=== PATIENT | female | born 1945 | race Caucasian/White ===

== ENCOUNTER 2016-11-15 11:53 | Emergency (ER) | payer MEDICARE, OTHER ==
[~2016-11-15] VITALS: Ht 170.2 cm; Wt 90.9 kg
[~2016-11-15 11:53] MED LIST: ASPI-586 PO; CIME200T10 PO; CYCL10TA45 PO; FLUT16SP NS; HYDR-3702 PO; HYDR-3708 PO; KETO10TA55 PO; LEVO125T6 PO; LEVO200T9; LVT.05T; MELO-249 PO; METF500T PO; METO-272 PO; NAPR500T PO; OMEP40CA36 PO; SIMV10TA PO; SIMV20TA PO; TRAM-25 PO
--- OUTSIDE RECORDS SUMMARY | 2016-11-15 11:57 | XMS REPORT | Continuity of Care Document ---
Author Author [facility] Address Unknown Phone Unavailable Care Team Providers Care Video Producer Name Role Phone PARRIS POWELL PCP [phone] Insurance Providers Payer Name Policy Number Subscriber Name Relationship Medicare A And B [id number] Kaitlynn Hawkins 19 Self / Same As Patient Other1 [id number] Kaitlynn Hawkins 19 Self / Same As Patient Advance Directives Directive Response Recorded Date/Time Advanced Directives Yes 08/21/16 8:36pm Type Living Will 08/21/16 8:36pm Chief Complaint and Reason for Visit Chief Complaint Pain Reason for Visit Osteoarthritis of left thumb [id number] Problems Active Problems Medical Problem Onset Date Status Acute thoracic myofascial strain ~07/14/2015 Acute Back pain ~05/19/2016 Acute Contusion ~01/04/2016 Acute Flank pain 04/26/2013 Acute Left lateral knee pain Unknown Acute Mid back pain on left side Unknown Acute Osteoarthritis of left thumb Unknown Acute Medications Current Home Medications Medication Dose Units Route Directions Days/Qty Instructions Start Date Omeprazole 40 Mg 04/26/13 Simvastatin 20 Mg 1 Tab ORAL Daily 04/26/13 Simvastatin 10 Mg 1 Tab ORAL Daily 04/26/13 Metformin Hcl 500 Mg 1 Tab ORAL Twice A Day 04/26/13 Levothyroxine Sodium 125 Mcg 125 Mcg ORAL Daily 45 07/14/15 Metoprolol Succinate 50 Mg 50 Mg ORAL Daily 30 07/14/15 Naproxen 500 Mg 500 Mg ORAL Twice A Day 20 05/19/16 Cyclobenzaprine Hcl 10 Mg 10 Mg ORAL Three Times A Day as needed for Muscle Spasms 30 05/19/16 Aspirin 81 Mg 81 Mg ORAL Daily 05/19/16 Cimetidine 200 Mg 4 Tab ORAL As Needed as needed for Dyspepsia 05/19 Meloxicam 15 Mg 15 Mg ORAL Daily 30 08/21/16 Past Home Medications Medication Directions Ordered Status Levothyroxine Sodium (Synthroid) 50 Mcg Tablet, 04/26/13 Discontinued Levothyroxine Sodium 200 Mcg Tablet, 04/26/13 Discontinued Ketorolac Tromethamine 10 Mg Tablet, 10 Mg Oral Every 6 Hours 04/26/13 Discontinued Hydrocodone Bit/Acetaminophen 1 Each Tablet, 1 Each Oral Every 6 Hours as needed for Pain 03/24/15 Discontinued Fluticasone Propionate 16 Gm Naspr, 16 Gm Nasal Daily 07/14/15 Discontinued Cyclobenzaprine Hcl 10 Mg Tablet, 10 Mg Oral Three Times A Day as needed for Muscle Spasms 07/14/15 Discontinued Acetaminophen/Hydrocodone Bitart 1 Each Tablet, 1-2 Tab Oral Every 6 Hours as needed for Pain 07/14/15 Discontinued Tramadol Hcl 50 Mg Tablet, 1-2 Tab Oral Every 6 Hours as needed for Pain Discontinued Social History Query Response Start Date Stop Date Smoking Status Never smoker Hospital Discharge Instructions No hospital discharge instructions. Plan of Care Discharge Date 08/21/16 9:43pm Disposition 01 HOME OR SELF-CARE Condition at Discharge Stable Instructions/Education Provided Knee Sprain (ED) Prescriptions See Medication Section Referrals PARRIS POWELL - Additional Instructions/Education Use the mobic as needed for pain. Return with worsening or changing pain. Since there is no trauma, it is unlikely that there is a fracture. However, if the pain is worse. Return to the primary care office Monday. Some of your test results may not be complete prior to your leaving the Emergency Department. The Emergency Department is not authorized to give test results over the phone. Please contact the doctor's office listed in this packet of information for your final results. Follow up with your primary care physician or return to the Emergency Department for worsening or worrisome symptoms. * Emergency Department phone number: [phone], x [phone]* MEDICAL RECORD If you need copies of your X-rays, call [phone]. If you need copies of your medical record, including lab results, a signed authorization for release of records will be required. A telephone call for release of Health Information is not allowed. BILLING Billing can sometimes be confusing and frustrating. To help avoid confusion in the future, please take a moment to acquaint yourself with the billing parties for services. SERVICE BILLING [facility] Emergency Room Services [facility] Physician Services [facility] X-rays [facility] Patients will receive bills for services from the appropriate provider. If you have any questions about your [facility] bill, our staff will be happy to assist you. Please call [phone], and ask for the billing department. THANK YOU for choosing [facility] as your emergency care provider! Care Plan and Goals ~~Discharge Care Plan~~ Problem: JOINT pain Goal: Decreased level of pain. Return to usual activities. Instructions: Take medication(s) as directed; follow up with your primary care physician as directed; follow patient home care instructions. Apply ice or heat to site for comfort. Functional Status No functional status results. Allergies, Adverse Reactions, Alerts Allergen Type Severity Reaction Status Last Updated Tramadol Allergy Mild Rash Active 05/19/16 Immunizations Name Given Type Status Date Influenza Vaccine Received if Current 08/22/15 Historical Historical Vital Signs Acute Vital Signs Vital Response Date/Time Temperature (Fahrenheit) 97.8 08/21/2016 9:39pm Pulse 82 bpm 08/21/2016 9:39pm Respirations 16 08/21/2016 9:39pm Height 5 ft 7 in Weight 210 lb Body Mass Index 33.0 kg/m^2 Results No known relevant diagnostic tests, laboratory data and/or discharge summary. Procedures No known history of procedures. Encounters Encounter Location Arrival/Admit Date Discharge/Depart Date Attending Provider Departed Emergency Room [facility] 08/21/16 8:30pm 08/21/16 9:43pm BHUPINDER MARIE MD Recent Diagnosis
[2016-11-15] MEDS ORDERED: SODIUM CHLORIDE FLUSH 10 ML SYR IV PRN ×2 (12:05→13:05)
[2016-11-15] MEDS ORDERED: ONDANSETRON 2 MG/ML (Z0FRAN) 2 ML VIAL IV ONE (12:05)
[2016-11-15] MEDS ORDERED: SODIUM CHLORIDE FLUSH 3 ML SYR IV PRN ×2 (12:05→13:05)
[2016-11-15] MEDS ORDERED: GI COCKTAIL 55 ML UDC PO ONE (13:05)
--- NOTE | 2016-11-15 13:15 | NUR ---
SALINE LOCK START, BY Mandie TURNER RN, IN PATIENT'S LT WRIST.
[2016-11-15 13:21] LABS: BASOPHILS % (AUTO) 0 % (0-2); EOSINOPHILS % (AUTO) 0 % (0-4); LYMPHOCYTES # (AUTO) 1.2 X10^3; MEAN CORPUSCULAR HEMOGLOBIN 28.6 PG (26.0-34.0); MEAN CORPUSCULAR HGB CONC 34.2 g/dL (31.0-37.0); MEAN CORPUSCULAR VOLUME 84 FL (80-100); MEAN PLATELET VOLUME 10.6 FL (6.0-9.5); MONOCYTES # (AUTO) 0.7 X10^3; MONOCYTES % (AUTO) 10 % (3-11); NEUTROPHILS # (AUTO) 5.3 X10^3; NEUTROPHILS % (AUTO) 73 % (51-67); PLATELET COUNT 231 10^3uL (150-450); WHITE BLOOD COUNT 7.16 10^3uL (4.0-11.0)
[2016-11-15] MEDS ORDERED: LIDOCAINE 2% VISCOUS 20ML UDC PO ONE (13:34)
[2016-11-15] MEDS ORDERED: MAG HYDROX/AL HYDROX/SIMETH 400-400-40/5 ML (MAG-AL PLUS XS) 30 ML UDC ONE (13:34)
[2016-11-15] MEDS ORDERED: BELLADONNA/PHENOBARBITAL ELIXIR (DONNATAL) 10 ML UDC ONE (13:34)
[2016-11-15 13:38] LABS: ALBUMIN 4.3 g/dL (3.4-5.0); ANION GAP 17.5 MEQ/L (3-15); CALCULATED IONIZED CALCIUM 3.8 mg/dL (3.8-4.6); TOTAL PROTEIN 7.3 g/dL (6.4-8.5)
[2016-11-15] MEDS ORDERED: ONDANSETRON 2 MG/ML (Z0FRAN) 2 ML VIAL ONE (13:44)
--- NOTE | 2016-11-15 13:52 | NUR ---
IV FLUID INFUSION STOPPED DUE TO PT COMPLAIN OF STINGING PAIN LT WRIST TO LT ELBOW.
--- NOTE | 2016-11-15 13:54 | NUR ---
WARM PACK PROVIDED TO PATIENT TO USE ON LT ARM DESIRED.
--- NOTE | 2016-11-15 13:57 | NUR ---
DR. RODRIGUEZ INFORMED OF PT COMPLAINT OF BURNING SENSATION WITH IVF. SHE INSTRUCTS NO ADDITIONAL IV START ATTEMPTS AT THIS TIME.
--- NOTE | 2016-11-15 14:46 | NUR ---
NOW THINKS SHE CAN PROVIDE URINE SPECIMEN AND IS UP TO TOILET IN ROOM.
--- NOTE | 2016-11-15 14:56 | Diagnostic Imaging Report ---
INDICATION: Pain. COMPARISON: 05/19/2016. FINDINGS: Some prominence of the basilar interstitial lung markings was present on the older exam as a chronic finding; however, the parenchymal density in both lower lobes has progressed and basilar pneumonias could not be excluded. The upper lobes are clear and well expanded. There is no failure pattern. No effusion or pneumothorax. There are clips at the gallbladder fossa. No differential air/fluid levels; however, upper abdominal small bowel loops air-containing are mildly ectatic and early partial obstruction versus enteritis could not be differentiated. The colonic fecal load is not pathologic. There is no free air. IMPRESSION: Mild gas-filled ectasia of the upper abdominal small bowel loops without free air. There is increased basilar interstitial opacity. Dictated by: Dictated on workstation # [id number]
[2016-11-15 15:14] LABS: BILIRUBIN,URINE Negative (Negative); CLARITY,URINE Clear; COLOR,URINE Yellow; GLUCOSE, URINE (UA) Negative (Negative); LEUKOCYTE ESTERASE ,URINE Negative (Negative)
[2016-11-15 15:20] LABS: URINE CENTRIFUGED VOLUME 12 mL
[2016-11-15 15:29] LABS: RBC,URINE None Seen /HPF
--- NOTE | 2016-11-15 15:37 | NUR ---
repositioned in bed and covered her with blanket
--- NOTE | 2016-11-15 15:46 | NUR ---
Patient reports another episode of retching. Says this happens intermittantly and she is never able tobring up anything except some "phlegm".
[2016-11-15] MEDS ORDERED: ONDANSETRON 4 MG (ZOFRAN) ORAL DISSOLVE TAB PO ONE (16:25)
--- NOTE | 2016-11-15 16:27 | NUR ---
pt having a wretching episode at this time. Dr. Jones notified and PO order received.
[2016-11-15] MEDS ORDERED: HYDR-3708 PO (17:19)
[2016-11-15] MEDS ORDERED: ONDA4TAB8 PO (17:20)
[2016-11-15 18:40] VITALS: BP 144/68
[2017-01-03] MEDS ORDERED: DICY20TA10 PO (12:23)
== END 2016-11-15 17:39 | disposition home or self-care (01) ==
LOC: ED 11:55
DX: R10.84 Generalized abdominal pain (principal)
CPT/HCPCS: 36415; 74022; 80053; 81003; 81015; 83690; 85025; 99285; A9270; J7030; 99283

== ENCOUNTER 2017-01-03 09:42 | Emergency (ER) | payer MEDICARE, OTHER ==
[~2017-01-03] VITALS: Ht 170.2 cm; Wt 90.1 kg
[2017-01-03 11:01] LABS: BASOPHILS % (AUTO) 0 % (0-2); EOSINOPHILS % (AUTO) 0 % (0-4); LYMPHOCYTES # (AUTO) 1.2 X10^3; MEAN CORPUSCULAR HEMOGLOBIN 28.7 PG (26.0-34.0); MEAN CORPUSCULAR HGB CONC 34.7 g/dL (31.0-37.0); MEAN CORPUSCULAR VOLUME 83 FL (80-100); MEAN PLATELET VOLUME 10.3 FL (6.0-9.5); MONOCYTES # (AUTO) 0.8 X10^3; MONOCYTES % (AUTO) 11 % (3-11); NEUTROPHILS # (AUTO) 5.5 X10^3; NEUTROPHILS % (AUTO) 72 % (51-67); PLATELET COUNT 276 10^3uL (150-450); WHITE BLOOD COUNT 7.57 10^3uL (4.0-11.0)
[2017-01-03 11:08] LABS: BILIRUBIN,URINE Negative (Negative); CLARITY,URINE Clear; COLOR,URINE Yellow; GLUCOSE, URINE (UA) Negative (Negative); LEUKOCYTE ESTERASE ,URINE Negative (Negative); PH,URINE 5.5 (5.0 - 8.0); UROBILINOGEN,URINE 0.2 mg/dL (0.2-1.0)
[2017-01-03 11:32] LABS: ALBUMIN 4.2 g/dL (3.4-5.0); ANION GAP 15.9 MEQ/L (3-15); CALCULATED IONIZED CALCIUM 3.8 mg/dL (3.8-4.6); TOTAL PROTEIN 7.8 g/dL (6.4-8.5)
[2017-01-03 16:07] VITALS: BP 127/52
== END 2017-01-03 12:32 | disposition home or self-care (01) ==
LOC: ED 09:43
DX: R10.84 Generalized abdominal pain (principal)
CPT/HCPCS: 36415; 76700; 80053; 81003; 83690; 85025; 99282; 99283

== ENCOUNTER → 2017-01-19 | Outpatient (CLI) | payer MEDICARE, OTHER | LOC: RAD 10:34 | PROVIDERS: ATTEND Surgery | DX: R91.8 Other nonspecific abnormal finding of lung field (principal); R91.1 Solitary pulmonary nodule | CPT/HCPCS: 71260; Q9967 ==

== ENCOUNTER 2017-01-20 06:44 | Day surgery (SDC) | payer MEDICARE, OTHER ==
[~2017-01-20] VITALS: Ht 170.2 cm; Wt 85.0 kg
[~2017-01-20 06:44] MED LIST changes: -ASPI-586 PO; -CIME200T10 PO; -CYCL10TA45 PO; -FLUT16SP NS; -HYDR-3702 PO; -HYDR-3708 PO; -KETO10TA55 PO; +LACTATED RINGERS 1,000 ML IV SCH; -LEVO125T6 PO; -LEVO200T9; -LVT.05T; -MELO-249 PO; -METF500T PO; -METO-272 PO; -NAPR500T PO; -OMEP40CA36 PO; -SIMV10TA PO; -SIMV20TA PO; +SODIUM CHLORIDE FLUSH 3 ML SYR IV PRN; -TRAM-25 PO
[2017-01-20 07:05] VITALS: BP 124/76
[2017-01-20] MEDS ORDERED: ALFENTANIL 500 MCG/ML (ALFENTA) 5 ML AMP IV ONE (08:06)
[2017-01-20] MEDS ORDERED: MIDAZOLAM 2 MG/2 ML (VERSED) VIAL ONE (08:06)
[2017-01-20] MEDS ORDERED: PROPOFOL 20 ML IV ONE (08:06)
[2017-01-20 08:52] VITALS: BP 112/63
[2017-01-20 09:15] VITALS: BP 138/74
== END 2017-01-20 09:49 | disposition home or self-care (01) ==
LOC: ASC 06:44
PROVIDERS: ATTEND Surgery
PROC: 0DBH8ZX Excision of Cecum, Via Natural or Artificial Opening Endoscopic, Diagnostic (ICD-10-PCS; principal; 2017-01-20)
DX: C83.39 Diffuse large B-cell lymphoma, extranodal and solid organ sites (principal); D12.2 Benign neoplasm of ascending colon; I10 Essential (primary) hypertension; E11.9 Type 2 diabetes mellitus without complications; Z79.84 Long term (current) use of oral hypoglycemic drugs; E07.9 Disorder of thyroid, unspecified; Z80.9 Family history of malignant neoplasm, unspecified
CPT/HCPCS: 36415; 45380; 82565; 88305; 88341; 88342; 88360; J2250; J7120

== ENCOUNTER → 2017-02-07 | Outpatient (CLI) | payer MEDICARE, OTHER ==
[~2017-02-07] MED LIST changes: +ASPI-586 PO; +CIME200T10 PO; +CYCL10TA45 PO; +DICY20TA10 PO; +FLUT16SP NS; +HYDR-3702 PO; +HYDR-3708 PO; +KETO10TA55 PO; -LACTATED RINGERS 1,000 ML IV SCH; +LEVO125T6 PO; +LEVO200T9; +LVT.05T; +MELO-249 PO; +METF500T PO; +METO-272 PO; +NAPR500T PO; +OMEP40CA36 PO; +ONDA4TAB8 PO; +SIMV10TA PO; +SIMV20TA PO; -SODIUM CHLORIDE FLUSH 3 ML SYR IV PRN; +TRAM-25 PO
[2017-02-07 11:03] LABS: MEAN CORPUSCULAR VOLUME 81 FL (80-100); MEAN PLATELET VOLUME 10.4 FL (6.0-9.5); PLATELET COUNT 289 10^3uL (150-450); WHITE BLOOD COUNT 5.87 10^3uL (4.0-11.0)
[2017-02-07 11:13] LABS: ALBUMIN 4.2 g/dL (3.4-5.0); ANION GAP 16.9 MEQ/L (3-15); CALCULATED IONIZED CALCIUM 3.8 mg/dL (3.8-4.6); PHOSPHORUS 3.9 mg/dL (2.4-4.9); TOTAL PROTEIN 7.8 g/dL (6.4-8.5)
[2017-02-07 11:28] LABS: MEAN CORPUSCULAR HEMOGLOBIN 26.8 PG (26.0-34.0)
[2017-02-07 11:31] LABS: BAND NEUTROPHILS % 0 % (0-6); EOSINOPHILS % 0 % (0-4); LYMPHOCYTES # 1.7 #; MONOCYTES # 0.5 #; MONOCYTES % 9 % (3-11); RBC MORPH NORMAL (NORMAL); SEGMENTED NEUTROPHILS % 61 % (51-67); TOTAL CELLS COUNTED 100
== END ==
LOC: LAB 10:45
PROVIDERS: ATTEND Internal Medicine Hematology & Oncology
DX: C83.38 Diffuse large B-cell lymphoma, lymph nodes of multiple sites (principal)
CPT/HCPCS: 36415; 80053; 80076; 82248; 83615; 83735; 84100; 84550; 85007; 85027

== ENCOUNTER → 2017-02-10 | Outpatient (CLI) | payer MEDICARE, OTHER | LOC: RAD 09:36 | PROVIDERS: ATTEND Internal Medicine Hematology & Oncology | DX: Z03.89 Encounter for observation for other suspected diseases and conditions ruled out (principal) | CPT/HCPCS: 93306 ==

== ENCOUNTER 2017-02-21 11:38 | Outpatient (RCR) | payer MEDICARE, OTHER ==
[2017-02-21 18:51] LABS: HEPATITIS A ANTIBODY IGM Negative; HEPATITIS B CORE ABY IGM Negative; HEPATITIS B SURFACE ANTIGEN C Negative
[2017-03-07] MEDS ORDERED: ONDA4TAB11 PO (16:44)
[2017-03-07] MEDS ORDERED: DICY20TA10 PO (16:44)
[2017-03-08] MEDS ORDERED: LORA0.5T PO (13:19)
[2017-03-08] MEDS ORDERED: HYDR-3708 PO (13:19)
[2017-03-08] MEDS ORDERED: ONDA-51 PO (13:19)
[2017-03-10] MEDS ORDERED: LEVO500T80 PO (14:10)
== END 2017-04-12 19:15 | disposition home or self-care (01) ==
LOC: LAB 11:38
PROVIDERS: ATTEND Internal Medicine Hematology & Oncology
DX: Z09 Encounter for follow-up examination after completed treatment for conditions other than malignant neoplasm (principal); R53.83 Other fatigue
CPT/HCPCS: 36415; 80074

== ENCOUNTER 2017-02-24 07:07 | Day surgery (SDC) | payer MEDICARE, OTHER ==
[~2017-02-24] VITALS: Ht 170.2 cm; Wt 83.0 kg
[~2017-02-24 07:07] MED LIST changes: +LACTATED RINGERS 1,000 ML IV SCH; +SODIUM CHLORIDE FLUSH 10 ML SYR IV PRN; +SODIUM CHLORIDE FLUSH 3 ML SYR IV PRN
[2017-02-24] MEDS ORDERED: ceFAZolin 2,000 MG in SODIUM CHLORIDE 100 ML IV ONE (07:15)
[2017-02-24] MEDS ORDERED: HEPARIN 5000 UNIT/0.5 ML SYRINGE ONE (07:16)
[2017-02-24] MEDS ORDERED: LIDOCAINE/EPINEPHRINE 1% 1:100,000 (XYLOCAINE) 30 ML VIAL INJ ONE (07:16)
[2017-02-24] MEDS ORDERED: PROPOFOL 20 ML IV ONE (08:22)
[2017-02-24] MEDS ORDERED: MIDAZOLAM 2 MG/2 ML (VERSED) VIAL ONE (08:22)
[2017-02-24] MEDS ORDERED: ALFENTANIL 1,000 MCG/2 ML AMP IV ONE (08:22)
[2017-02-24] MEDS ORDERED: ceFAZolin 1000 MG (ANCEF) VIAL ONE (08:30)
[2017-02-24 09:22] VITALS: BP 138/64
[2017-02-24 09:42] VITALS: BP 128/69
--- NOTE | 2017-02-25 14:38 | Diagnostic Imaging Report ---
EXAM: Fluoroscopy. PowerPort insertion FINDINGS: Fluoroscopic assistance was provided for Dr. James Ho during a PowerPort insertion procedure. Four seconds of fluoroscopy time was visualized. A single spot film of the right thorax was received from the OR. There is a central venous catheter in place with the tip of the catheter overlying the distal superior vena cava. IMPRESSION: Fluoroscopic assistance was provided for Dr. Ho during a PowerPort insertion procedure. A followup chest exam would be recommended for continued evaluation. Dictated by: Dictated on workstation # [id number]
--- NOTE | 2017-02-27 11:31 | OPERATIVE REPORT ---
DATE OF OPERATION: 02/24/2017 PRE-OPERATIVE DIAGNOSIS: Colonic lymphoma POST-OPERATIVE DIAGNOSIS: Colonic lymphoma OPERATIVE PROCEDURE: Insertion of left subclavian PowerPort SURGEON: Hardik Ho MD CARGO TANK MECHANIC: SIOMARA Brock ANESTHESIA: Monitored anesthesia care with local INDICATIONS: The patient is a 71-year-old referred by Sae Rizo, found to have a primarily lymphoma involving the colon on endoscopy. Chemotherapy has been recommended as her initial treatment and she presents here for placement of a port for access. DESCRIPTION OF PROCEDURE: The patient was informed of the risks and benefits and agreed to proceed. She was administered IV antibiotics and taken to the operating room. She was then administered IV sedation. Her upper chest and neck were prepped and draped in the standard sterile fashion and she was placed Trendelenburg position. Then 1% lidocaine with epinephrine was injected in the skin of the left deltopectoral groove and along the periosteum of the left clavicle. A Cook needle and syringe was then passed into the subclavian vein and the syringe was removed. The guidewire was passed through the needle into the subclavian vein and superior vena cava. Fluoroscopy was used to confirmed adequate placement of the guidewire with its tip outside the right atrium. The needle was removed and additional lidocaine was injected in the skin around the guidewire entrance site. A transverse incision was made with the #15 blade scalpel measuring about 3 cm in length. Cautery and blunt dissection were then used to create a subcutaneous pocket for placement of the port. Two separate 2-0 Prolene sutures were placed through the pectoralis fascia within the pocket and the port and catheter were then flushed heparinized saline and placed into the pocket. The Prolene sutures were passed through the side holes of the port. The catheter was cut to 22 cm based on the patient's anatomy. The dilator and sheath were then passed over the guidewire and into the subclavian vein. The dilator and guidewire were removed and the catheter was passed through the sheath. The sheath was peeled away. Fluoroscopy confirmed proper placement of the catheter with the tip in the superior vena cava outside the right atrium. There were no kinks in the catheter. The Prolene sutures were tied to secure the port to the pectoralis fascia. The port easily aspirated and was flushed with heparinized saline. The subcutaneous tissue was reapproximated at the incision with interrupted 3-0 Vicryl and the skin was closed with subcuticular 4-0 Monocryl. Dressings were applied. The patient tolerated the procedure without complications.
== END 2017-02-24 09:58 | disposition home or self-care (01) ==
LOC: ASC 07:07
PROVIDERS: ATTEND Surgery
DX: C85.19 Unspecified B-cell lymphoma, extranodal and solid organ sites (principal); J44.9 Chronic obstructive pulmonary disease, unspecified; I10 Essential (primary) hypertension; E11.9 Type 2 diabetes mellitus without complications; Z79.84 Long term (current) use of oral hypoglycemic drugs; Z79.82 Long term (current) use of aspirin
CPT/HCPCS: 36561; 77001; C1788; J0690; J1644; J2250; J7050; J7120

== ENCOUNTER 2017-02-27 09:04 | Day surgery (SDC) | payer MEDICARE, OTHER ==
--- NOTE | 2017-02-24 12:52 | OPERATIVE REPORT ---
DATE OF OPERATION: 02/24/2017 PRE-OPERATIVE DIAGNOSIS: Colonic lymphoma POST-OPERATIVE DIAGNOSIS: Colonic lymphoma OPERATIVE PROCEDURE: Insertion of left subclavian PowerPort SURGEON: Hardik oH MD EDGER TECHNICIAN: SIOMARA Brock ANESTHESIA: Monitored anesthesia care with local INDICATIONS: The patient is a 71-year-old referred by Sae Rizo, found to have a primarily lymphoma involving the colon on endoscopy. Chemotherapy has been recommended as her initial treatment and she presents here for placement of a port for access. DESCRIPTION OF PROCEDURE: The patient was informed of the risks and benefits and agreed to proceed. She was administered IV antibiotics and taken to the operating room. She was then administered IV sedation. Her upper chest and neck were prepped and draped in the standard sterile fashion and she was placed Trendelenburg position. Then 1% lidocaine with epinephrine was injected in the skin of the left deltopectoral groove and along the periosteum of the left clavicle. A Cook needle and syringe was then passed into the subclavian vein and the syringe was removed. The guidewire was passed through the needle into the subclavian vein and superior vena cava. Fluoroscopy was used to confirmed adequate placement of the guidewire with its tip outside the right atrium. The needle was removed and additional lidocaine was injected in the skin around the guidewire entrance site. A transverse incision was made with the #15 blade scalpel measuring about 3 cm in length. Cautery and blunt dissection were then used to create a subcutaneous pocket for placement of the port. Two separate 2-0 Prolene sutures were placed through the pectoralis fascia within the pocket and the port and catheter were then flushed heparinized saline and placed into the pocket. The Prolene sutures were passed through the side holes of the port. The catheter was cut to 22 cm based on the patient's anatomy. The dilator and sheath were then passed over the guidewire and into the subclavian vein. The dilator and guidewire were removed and the catheter was passed through the sheath. The sheath was peeled away. Fluoroscopy confirmed proper placement of the catheter with the tip in the superior vena cava outside the right atrium. There were no kinks in the catheter. The Prolene sutures were tied to secure the port to the pectoralis fascia. The port easily aspirated and was flushed with heparinized saline. The subcutaneous tissue was reapproximated at the incision with interrupted 3-0 Vicryl and the skin was closed with subcuticular 4-0 Monocryl. Dressings were applied. The patient tolerated the procedure without complications.
[~2017-02-27] VITALS: Ht 170.2 cm; Wt 83.6 kg
[2017-02-27] VITALS (7 sets, daily range): BP systolic 116–140; BP diastolic 70–77
[~2017-02-27 09:04] MED LIST changes: -LACTATED RINGERS 1,000 ML IV SCH; -SODIUM CHLORIDE FLUSH 10 ML SYR IV PRN; -SODIUM CHLORIDE FLUSH 3 ML SYR IV PRN
--- NOTE | 2017-02-27 13:45 | Diagnostic Imaging Report ---
INDICATION: Diffuse B-cell lymphoma. COMPARISON: None available. TECHNIQUE: Fluoroscopic-guided lumbar puncture was performed. 0.5 minutes of fluoroscopy time was utilized for this procedure. FINDINGS: Informed consent was obtained from the patient. The patient was then placed in the prone position on the fluoroscopic table. The skin overlying the L3 vertebral body was marked, and then prepped and draped in normal sterile fashion. The skin was anesthetized using 1% lidocaine solution. Under fluoroscopic guidance, a 22-gauge needle was advanced into the thecal sac from a posterior approach at the L3 vertebral level. Upon entering the thecal sac, there was prompt return of clear, colorless CSF fluid. A total of 8 mL of CSF was collected and submitted for requested cytology evaluation. Patient tolerated the procedure well, and was transferred to postoperative area for recovery. No immediate complications. IMPRESSION: 1. Successful lumbar puncture with obtained fluid sent for requested cytology evaluation. Dictated by: Dictated on workstation # [id number]
--- NOTE | 2017-02-27 14:24 | NUR ---
ORDERS VERIFIED WITH DR. Danielito JOSE. OK FOR PATIENT TO LEAVE AFTER LYING FLAT FOR 3 HOURS. PATIENT TO BE BED REST WITH BRP AT HOME.
== END 2017-02-27 15:19 | disposition home or self-care (01) ==
LOC: ASC 09:04
PROVIDERS: ATTEND Internal Medicine Hematology & Oncology
DX: C83.38 Diffuse large B-cell lymphoma, lymph nodes of multiple sites (principal)
CPT/HCPCS: 36415; 62270; 77003; 85610; 85730; 88112; 88184; 88185

== ENCOUNTER → 2017-03-02 | Outpatient (CLI) | payer MEDICARE, OTHER ==
[~2017-03-02] MED LIST changes: +LORA0.5T PO; +ONDA-51 PO; +ONDA4TAB11 PO
--- NOTE | 2017-03-02 10:52 | Diagnostic Imaging Report ---
PROCEDURE: CT head with and without contrast. TECHNIQUE: Multiple contiguous axial images were obtained through the brain before and after the administration of intravenous contrast. INDICATION: History of lymphoma. FINDINGS: The ventricles and cortical gyral pattern are normal. There is no evidence of intracranial hemorrhage. No extra axial fluid collection. There is no mass effect. Basal cisterns are clear. CP angles appear normal. Following IV contrast injection. There is normal enhancement of the intracranial arteries. The sagittal and transverse sinus also show normal enhancement. There are no abnormal enhancing masses. The meninges do not enhance in an abnormal fashion. Bone windows show mastoid air cells to be clear. Paranasal sinuses are clear were visualized. No destructive bony changes. IMPRESSION: Normal CT scan of the head with and without contrast. No findings are seen to suggest metastatic disease. Dictated by: Dictated on workstation # [id number]
== END ==
LOC: RAD 09:01
PROVIDERS: ATTEND Internal Medicine Hematology & Oncology
DX: C83.39 Diffuse large B-cell lymphoma, extranodal and solid organ sites (principal)
CPT/HCPCS: 70470; Q9967

== ENCOUNTER 2017-03-06 08:32 | Outpatient (RCR) | payer MEDICARE, OTHER ==
[~2017-03-06 08:32] MED LIST changes: -LORA0.5T PO; -ONDA-51 PO; -ONDA4TAB11 PO
[2017-03-06 08:47] LABS: MEAN CORPUSCULAR HGB CONC 33.8 g/dL (31.0-37.0); MEAN PLATELET VOLUME 11.7 FL (6.0-9.5); PLATELET COUNT 161 10^3uL (150-450); WHITE BLOOD COUNT 2.04 10^3uL (4.0-11.0)
[2017-03-06 08:50] LABS: MEAN CORPUSCULAR HEMOGLOBIN 26.6 PG (26.0-34.0); MEAN CORPUSCULAR VOLUME 79 FL (80-100)
[2017-03-06 09:12] LABS: BAND NEUTROPHILS % 1 % (0-6); EOSINOPHILS % 0 % (0-4); LYMPHOCYTES # 0.8 #; MONOCYTES # 0.1 #; MONOCYTES % 3 % (3-11); RBC MORPH NORMAL (NORMAL); SEGMENTED NEUTROPHILS % 55 % (51-67); TOTAL CELLS COUNTED 100
[2017-03-07] MEDS ORDERED: DICY20TA10 PO (16:44)
[2017-03-07] MEDS ORDERED: ONDA4TAB11 PO (16:44)
[2017-03-08] MEDS ORDERED: HYDR-3708 PO (13:19)
[2017-03-08] MEDS ORDERED: ONDA-51 PO (13:19)
[2017-03-08] MEDS ORDERED: LORA0.5T PO (13:19)
[2017-03-10] MEDS ORDERED: LEVO500T80 PO (14:10)
[2017-03-13 12:16] LABS: MEAN CORPUSCULAR HGB CONC 32.7 g/dL (31.0-37.0); MEAN CORPUSCULAR VOLUME 81 FL (80-100); MEAN PLATELET VOLUME 10.5 FL (6.0-9.5); PLATELET COUNT 248 10^3uL (150-450); WHITE BLOOD COUNT 4.46 10^3uL (4.0-11.0)
[2017-03-13 12:20] LABS: MEAN CORPUSCULAR HEMOGLOBIN 26.5 PG (26.0-34.0)
[2017-03-13 12:22] LABS: BAND NEUTROPHILS % 0 % (0-6); EOSINOPHILS % 0 % (0-4); LYMPHOCYTES # 1.3 #; MONOCYTES # 0.2 #; MONOCYTES % 4 % (3-11); RBC MORPH NORMAL (NORMAL); SEGMENTED NEUTROPHILS % 67 % (51-67); TOTAL CELLS COUNTED 100
[2017-03-13 12:44] LABS: ALBUMIN 3.9 g/dL (3.4-5.0); ANION GAP 14.1 MEQ/L (3-15); CALCULATED IONIZED CALCIUM 4.1 mg/dL (3.8-4.6); MAGNESIUM* 1.9 mg/dL (1.6-2.3); TOTAL PROTEIN 7.1 g/dL (6.4-8.5)
[2017-03-20 10:35] LABS: MEAN CORPUSCULAR VOLUME 81 FL (80-100); MEAN PLATELET VOLUME 9.9 FL (6.0-9.5); PLATELET COUNT 386 10^3uL (150-450); WHITE BLOOD COUNT 4.27 10^3uL (4.0-11.0)
[2017-03-20 11:10] LABS: MEAN CORPUSCULAR HEMOGLOBIN 26.8 PG (26.0-34.0)
[2017-03-20 11:33] LABS: BAND NEUTROPHILS % 4 % (0-6); EOSINOPHILS % 0 % (0-4); MONOCYTES # 0.3 #; MONOCYTES % 8 % (3-11); RBC MORPH NORMAL (NORMAL); SEGMENTED NEUTROPHILS % 64 % (51-67); TOTAL CELLS COUNTED 100
[2017-04-03 10:52] LABS: MEAN CORPUSCULAR VOLUME 82 FL (80-100); MEAN PLATELET VOLUME 10.5 FL (6.0-9.5); PLATELET COUNT 128 10^3uL (150-450)
[2017-04-03 11:30] LABS: ANISOCYTOSIS MODERATE; BAND NEUTROPHILS % 9 % (0-6); EOSINOPHILS % 0 % (0-4); LYMPHOCYTES # 0.9 #; MONOCYTES # 0.4 #; MONOCYTES % 6 % (3-11); RBC MORPH SEE REFERENCE (NORMAL); SEGMENTED NEUTROPHILS % 70 % (51-67); TOTAL CELLS COUNTED 100
== END 2017-04-12 19:16 | disposition home or self-care (01) ==
LOC: EDSTATUS 08:32 → LAB 08:32
PROVIDERS: ATTEND Internal Medicine Hematology & Oncology
DX: C83.39 Diffuse large B-cell lymphoma, extranodal and solid organ sites (principal)
CPT/HCPCS: 36415; 80053; 83615; 83735; 84100; 85007; 85027

== ENCOUNTER 2017-03-07 16:15 | Inpatient (IN) | payer MEDICARE, OTHER ==
[~2017-03-07] VITALS: Ht 170.2 cm; Wt 84.5 kg
[2017-03-07] MEDS ORDERED: DICY20TA10 PO (16:44)
[2017-03-07] MEDS ORDERED: ONDA4TAB11 PO (16:44)
[2017-03-07 16:55] LABS: MEAN CORPUSCULAR HGB CONC 33.6 g/dL (31.0-37.0); MEAN PLATELET VOLUME 11.6 FL (6.0-9.5); PLATELET COUNT 138 10^3uL (150-450)
[2017-03-07 16:58] LABS: BILIRUBIN,URINE 3+ (Negative); CLARITY,URINE Clear; GLUCOSE, URINE (UA) Trace (Negative); LEUKOCYTE ESTERASE ,URINE Negative (Negative); UROBILINOGEN,URINE >=8.0 mg/dL (0.2-1.0)
[2017-03-07 17:00] LABS: COLOR,URINE Orange
[2017-03-07 17:05] LABS: MEAN CORPUSCULAR HEMOGLOBIN 26.2 PG (26.0-34.0); MEAN CORPUSCULAR VOLUME 78 FL (80-100)
[2017-03-07 17:11] LABS: WHITE BLOOD COUNT 0.17 10^3uL (4.0-11.0)
[2017-03-07 17:12] LABS: URINE CENTRIFUGED VOLUME <10mL Unspun
[2017-03-07 17:13] LABS: RBC,URINE None Seen /HPF
[2017-03-07 17:16] LABS: AMORPHOUS SEDIMENT,UR 1+ /HPF
[2017-03-07 17:19] LABS: ALBUMIN 3.1 g/dL (3.4-5.0); ANION GAP 17.4 MEQ/L (3-15); TOTAL PROTEIN 5.7 g/dL (6.4-8.5)
[2017-03-07 17:27] LABS: BAND NEUTROPHILS % 0 % (0-6); EOSINOPHILS % 0 % (0-4); LYMPHOCYTES # 0.1 #; MONOCYTES % 8 % (3-11); SEGMENTED NEUTROPHILS % 44 % (51-67); TOTAL CELLS COUNTED 100
[2017-03-07 17:28] LABS: MICROCYTOSIS SLIGHT; RBC MORPH SEE REFERENCE (NORMAL)
[2017-03-07] MEDS ORDERED: CEFEPIME 2,000 MG in SODIUM CHLORIDE 100 ML IV ONE (17:55)
--- NOTE | 2017-03-07 18:27 | Diagnostic Imaging Report ---
Clinical indication: Patient with weakness. Exam: Chest x-ray PA and lateral views. Comparisons: CT scan of the chest with IV contrast dated 01/19/2017. Findings: Port-A-Cath seen overlying the left chest with tip in the distal superior vena cava region. Lungs/pleura: There is a roughly 9 mm nodular area in the right lung base which correlates to the nodule seen on comparison chest CT scan. The other described nodules in the lungs are not well-delineated on this exam and better seen on the chest CT scan. Mild atelectasis in the lingular region is again seen. There is no gross interval lung infiltrate. There is no pneumothorax. There is no pleural effusion. Mediastinum: Unremarkable. Pulmonary vasculature: Unremarkable. Heart: Unremarkable. Bones/extrathoracic soft tissue: There are small degenerative spurs involving the thoracic spine. Surgical clips are seen overlying the right upper quadrant which could be related to cholecystectomy changes. Impression: 1: There is no interval lung infiltrate seen. 2: Nodule in the right lung base is seen which is better seen on the comparison chest CT scan. 3: Mild lingular atelectasis versus scarring. Dictated by: Dictated on workstation # [id number]
[2017-03-07] MEDS ORDERED: MAG HYDROX/AL HYDROX/SIMETH 200-200-20/5 ML (MAG-AL PLUS) 30 ML UDC PO PRN (19:30)
[2017-03-07] MEDS ORDERED: ONDANSETRON 4 MG (ZOFRAN) ORAL DISSOLVE TAB PO PRN (19:30)
[2017-03-07] MEDS ORDERED: IBUPROFEN 600 MG (MOTRIN) TAB PO PRN (19:30)
[2017-03-07] MEDS ORDERED: VANCOMYCIN 1,000 MG in SODIUM CHLORIDE 250 ML IV ONE (19:30)
[2017-03-07] MEDS ORDERED: HYDROcodone/APAP 7.5 MG/325 MG (NORCO) TABLET PO PRN (19:30)
[2017-03-07] MEDS ORDERED: PROMETHAZINE HCL INJ 12.5 MG in SODIUM CHLORIDE 25 ML IV PRN (19:30)
[2017-03-07] MEDS ORDERED: ONDANSETRON 2 MG/ML (Z0FRAN) 2 ML VIAL IV PRN (19:30)
[2017-03-07] MEDS ORDERED: POLYETHYLENE GLYCOL 17 GM (MIRALAX) PACKET PO PRN (19:30)
[2017-03-07] MEDS ORDERED: DEXTROSE ORAL GEL (GLUTOSE 40%) 15 GM TUBE PO PRN (19:30)
[2017-03-07] MEDS ORDERED: DEXTROSE 50% 25 GM/50 ML SYRINGE IV PRN (19:30)
[2017-03-07] MEDS ORDERED: VANCOMYCIN PHARMACY PROTOCOL IV SCH ×2 (19:30)
[2017-03-07] MEDS ORDERED: MAGNESIUM HYDROXIDE 80MG/ML (MILK OF MAGNESIA) 30 ML UDC PO PRN (19:30)
[2017-03-07] MEDS ORDERED: DOCUSATE SODIUM 100 MG (COLACE) CAP PO PRN (19:30)
[2017-03-07] MEDS ORDERED: GLUCAGON EMERGENCY 1 MG/KIT IM PRN (19:30)
[2017-03-07] MEDS ORDERED: CALCIUM CARBONATE CHEWABLE 300 MG (TUMS) TABLET PO PRN (19:30)
--- NOTE | 2017-03-07 19:52 | History and Physical (E) ---
History & Physical PCP: Jorge Pool CC: Chills, dry heaves, PRETTY. HPI Kaitlynn Hawkins is a 71 year old female admitted from ED 03/07 where she presented with complaint of chills, dry heaves last night 03/06 and with PRETTY today. Had some diarrhea recently as well. Had chemotherapy about 1 week ago. Mildly tachy in ED but afebrile. BP was quite low initially at 79/50. Quite neutropenic with WBC 0.17, 44% N (ANC = 74.) Hgb 10.7. PLt 138. Chemistry showed AST 90, ALT 191 , AlkP 97, Bili 2.3. Lactic acid 2.7. UA positive for nitrite but negative for LE. Initially no imaging was ordered in the ED. CXR was requested on transfer from ED. Blood culture was drawn in ED. Asked ED physician to start cefepime and she was then admitted for further management. On arrival to unit, awake, interactive, oriented. NAD at present and vitals stable with BP improved to 112/58. She is able to relate history. Boyfriend and another friend are also present to provide history. Had chemo 1 week ago at [facility]. Got 6 different medications. Tolerated that well though she had headaches. Started feeling crummy last night with PRETTY earlier, then some soft stools followed by diarrhea. PRETTY got worse. Went to bed at 2100, had chills. Didn't check temp. [place] so weak she didn't get out of bed. Friends called in AM but she didn't even have strength to answer phone. Friends finally came to check on her, found her to be ill and they brought her to ED. With this illness, no objective fever but had chills. Had dry heaves. Some cough but this is chronic. No dyspnea. No chest pains or palpitations. PRETTY has been persistent. PMH * Non-Hodgkin's Lymphoma, stage IV, diagnosis November 2016 * GERD * HLD * Diabetes Mellitus Type II * Hypothyroidism * Sarcoidosis * HTN * Arthritis * Back pain PSH * Cholecystectomy * Thyroidectomy * Colonoscopy * Lung biopsy * Medi-port ALLERGIES: Please see list at end of report. HOME MEDICATIONS: Please see list at end of report. FH Mom of CHF and renal failure. Father of gastrointestinal cancer, type unknown. SH Lives in her own home [place]. Leave of absence from [employer]. . Has a boyfriend. Non-smoker. Drinks alcohol occasionally. No drug use. ROS CONSTITUTION: Denies weight loss or gain. HEENT: PRETTY. No sores in mouth or sore throat. CV: No chest pain, palpitations. PULM: Chronic cough, no dyspnea. GI: Per HPI, exam. : No dysuria. No blood in urine. MS: Achy all over. NEURO: No numbness or tingling. No weakness. INTEG: No rashes, lesions, or sores. ENDO: No heat or cold intolerance. No polydipsia or polyuria. HEME/LYMPH: No easy bruising or bleeding. No swollen glands. PSYCH: No change in mood or behavior. OBJECTIVE Vital Signs Date Time Temp Pulse Resp B/P Pulse Ox O2 Delivery O2 Flow Rate FiO2 03/07/17 17:30 90 112/58 100 Room Air 03/07/17 16:34 96.9 18 GEN: Awake, alert, oriented, NAD at present. HEENT: EOMI, clear sclerae, somewhat dry oral mucosa. CV: RRR S1 S2 normal with no murmur LUNGS: CTA B with no R/R/W. ABD: Soft, NT/ND with normal bowel sounds. EXTR: No C/C/E. Normal peripheral pulses. INTEG: No rash. Warm, dry, well-perfused. NEURO: No focal motor neuro deficit. Mild psychomotor slowing. Weight: 81.8 kg Laboratory Results-14 Days 03/07/17 16:32: Urine Amorphous Sediment 1+H, Urine Bacteria 2+H, Urine Bilirubin 3+H, Urine Blood Trace-lysedH, Urine Clarity Clear, Urine Collection Type Clean catch, Urine Color [place], Urine Glucose (UA) TraceH, Urine Ketones TraceH, Urine Leukocyte Esterase Negative, Urine Microscopic RBC None seen, Urine Mucus 3+H, Urine Nitrite PositiveH, Urine Protein 2+H, Urine Specific [place] 1.020, Urine Squamous Epithelial Cells 5-10, Urine Urobilinogen >=8.0H, Urine WBC 10-20H, Urine pH 6.0, Volume Urine Centrifuged <10ml unspun 03/07/17 16:45: Absolute Band Neutrophils 0.0, Alanine Aminotransferase (ALT/SGPT) 191H, Albumin 3.1#L, Albumin/Globulin Ratio 1.192, Alkaline Phosphatase 97, Anion Gap 17.4H, Anisocytosis , Aspartate Amino Transf (AST/SGOT) 90H, BUN/Creatinine Ratio 25H, Band Neutrophils % 0, Basophils # (Auto) , Basophils # (Manual) 0.0, Basophils % (Manual) 0, Basophils (%) (Auto) , Blood Morphology Comment See reference, Blood Urea Nitrogen 22#H, Calcium Level 8.1L, Calcium/Ionized Calcium Ratio 4.0, Calculated Osmolality 267L, Carbon Dioxide Level 28, Chloride Level 93L, Creatinine 0.88, Differential Total Cells Counted 100, Eosinophils # 0.0, Eosinophils # (Auto) , Eosinophils % (Manual) 0, Eosinophils (%) (Auto) , Estimat Glomerular Filtration Rate 76.9, Estimated GFR (Non- 63.5, Glucose Level 151H, Hematocrit 31.80L, Hemoglobin 10.7L, Lactic Acid Level 2.7H, Lymphocytes # 0.1, Lymphocytes # (Auto) , Lymphocytes % (Manual) 48H, Lymphocytes (%) (Auto) , Mean Corpuscular Hemoglobin 26.2, Mean Corpuscular Hemoglobin Concent 33.6, Mean Corpuscular Volume 78L, Mean Platelet Volume 11.6H, Microcytosis Slight, Monocytes # 0.0, Monocytes # (Auto) , Monocytes % (Manual) 8, Monocytes (%) (Auto) , Neutrophils # 0.1, Neutrophils # (Auto) , Neutrophils (%) (Auto) , Platelet Count 138L, Potassium Level 4.1, Red Blood Count 4.09, Red Cell Distribution Width 13.7, Segmented Neutrophils % 44L , Sodium Level 135, Total Bilirubin 2.3#H, Total Protein 5.7L, White Blood Count 0.17*L MICRO 03/07 Blood culture PENDING 03/07 Urine culture PENDING IMAGING 03/07/17 CHEST PA/LAT (2 VIEW)* Clinical indication: Patient with weakness. Exam : Chest x-ray PA and lateral views. Comparisons: CT scan of the chest with IV contrast dated 01/19/2017. Findings: Port-A-Cath seen overlying the left chest with tip in the distal superior vena cava region. Lungs/pleura: There is a roughly 9 mm nodular area in the right lung base which correlates to the nodule seen on comparison chest CT scan. The other described nodules in the lungs are not well-delineated on this exam and better seen on the chest CT scan. Mild atelectasis in the lingular region is again seen. There is no gross interval lung infiltrate. There is no pneumothorax. There is no pleural effusion. Mediastinum: Unremarkable. Pulmonary vasculature: Unremarkable. Heart: Unremarkable. Bones/extrathoracic soft tissue: There are small degenerative spurs involving the thoracic spine. Surgical clips are seen overlying the right upper quadrant which could be related to cholecystectomy changes. Impression: 1: There is no interval lung infiltrate seen. 2: Nodule in the right lung base is seen which is better seen on the comparison chest CT scan. 3 : Mild lingular atelectasis versus scarring. REFERENCE 03/02/17 CT HEAD W WO PROCEDURE: CT head with and without contrast. TECHNIQUE: Multiple contiguous axial images were obtained through the brain before and after the administration of intravenous contrast. INDICATION: History of lymphoma. FINDINGS: The ventricles and cortical gyral pattern are normal. There is no evidence of intracranial hemorrhage. No extra axial fluid collection. There is no mass effect. Basal cisterns are clear. CP angles appear normal. Following IV contrast injection. There is normal enhancement of the intracranial arteries. The sagittal and transverse sinus also show normal enhancement. There are no abnormal enhancing masses. The meninges do not enhance in an abnormal fashion. Bone windows show mastoid air cells to be clear. Paranasal sinuses are clear were visualized. No destructive bony changes. IMPRESSION: Normal CT scan of the head with and without contrast. No findings are seen to suggest metastatic disease. 01/19/17 CT CHEST W PROCEDURE: CT chest with contrast only. TECHNIQUE: Multiple contiguous axial images were obtained through the chest after administration of intravenous contrast. INDICATION: Pulmonary nodules, history of sarcoidosis. COMPARISON: Comparison limited to relevant overlapped images from a CT thoracic spine dated 04/26/2013 and with overlapped images of an abdominopelvic CT performed 04/26/2013. FINDINGS: There is no peritracheal or mediastinal lymphadenopathy. There is no hilar adenopathy. No bronchiectasis. No suspicious interstitial lung disease, no evidence for acute pneumonia. There is a right lower lobe nodule measuring 8.6 mm unchanged from the abdominal CT of 2013. Micronodule 3-4 mm in the left lower lobe also unchanged from 2013 chronic and benign. A right lower lobe nodule posteromedially near the posterior sulcus today measures 1 cm unchanged as well. No new dominant or suspicious lung mass. No thoracic adenopathy. No effusion or pneumothorax. Visualized upper abdomen unremarkable. IMPRESSION: Bilateral pulmonary nodules unchanged from a study performed in April 2013. This degree of stability is adequate to confirm benignity. No lymphadenopathy, no pneumonia, and no evidence for substantial chronic interstitial disease. ASSESSMENT Kaitlynn Hawkins is a 71 year old female admitted from ED 03/07 where she presented with SIRS/sepsis attributed to UTI. She had profound hypotension on admit consistent with severe sepsis but BP rapidly improved with IVF given in ED. She had profound neutropenia on admit with WBC 0.17 and ANC 45. She has underlying NHL. PLAN * SIRS, Severe Sepsis: Attribute to UTI but in the setting of severe neutropenia. Cultures pending. Broad spectrum antibiotics. * UTI: Urine culture pending. Broad spectrum coverage with cefepime and vanco because of neutropenia. * Neutropenic Fever: Fever subjective. ANC on admit 75. Already got G-CSF. Monitor counts. Cefepime, vanco. * NHL, Stage IV: Obtain records from [facility]. * Hypotension: BP low on initial presentation, 79/50. Responsive to IVF. 1 L NS bolus given in ED. 2 additional liters ordered on admit. * PRETTY: Ibuprofen, norco. * Nausea/Vomiting: Minimal on admit but had symptoms prior to admit. Ondansetron , promethazine. * F/E/N: IVF as above. Diabetic diet. Port. I&O, daily weight. * Prophylaxis: Enoxaparin * Code Status: DNR. Discussed on admit. * Dispo: Inpatient, expecting 3 day stay minimum. CHRONIC ISSUES * Diabetes Mellitus Type II: Sliding scale. Hold metformin. * Hypothyroidism: Levothyroxine * HTN: Hold metoprolol. * HLD: Simvastatin * GERD: Pantoprazole (sub for omeprazole. Allergies/Home Medications Allergies: Coded Allergies: tramadol (Verified Allergy, Mild, Itching, rash, 03/07/17) Reported Home Medications Scheduled Aspirin (Aspir 81) 81 MG PO DAILY (Reported) Dicyclomine HCl (Dicyclomine HCl) 20 MG PO UD (Reported) Levothyroxine Sodium (Levothyroxine Sodium) 1.5 TAB PO DAILY (Reported) Metformin HCl (Glucophage) 1 TAB PO BID (Reported) Metoprolol Succinate (Metoprolol Succinate) 50 MG PO DAILY (Reported) Omeprazole (Omeprazole) 40 MG PO DAILY (Reported) Ondansetron (Ondansetron ODT) 4 MG PO UD (Reported) Simvastatin (Zocor) 1 TAB PO DAILY (Reported) Simvastatin (Zocor) 1 TAB PO DAILY (Reported) Copies to: End of Report . MONI DOVER MD Mar 07, 2017 18:02
[2017-03-07] MEDS ORDERED: SODIUM CHLORIDE 250 ML ONE (19:53)
[2017-03-07] MEDS ORDERED: VANCOMYCIN 1000 MG VIAL ONE (19:53)
[2017-03-07 20:00] VITALS: BP 100/50
[2017-03-07] MEDS: INSULIN LISPRO 1 UNIT/0.01 ML (HUMALOG) DOSE SC SCH (20:20)
[2017-03-07] MEDS: CEFEPIME 2,000 MG in SODIUM CHLORIDE 100 ML IV SCH (21:00)
[2017-03-07] MEDS: ACETAMINOPHEN 325 MG TAB (TYLENOL) PO PRN (22:03)
[2017-03-08 00:22] VITALS: BP 106/57
[2017-03-08 05:10] VITALS: BP 124/67
[2017-03-08 06:24] LABS: MEAN CORPUSCULAR HGB CONC 33.5 g/dL (31.0-37.0); MEAN PLATELET VOLUME 11.3 FL (6.0-9.5); PLATELET COUNT 98 10^3uL (150-450)
[2017-03-08] MEDS: INSULIN LISPRO 1 UNIT/0.01 ML (HUMALOG) DOSE SC SCH ×4 (06:25→21:00)
[2017-03-08] MEDS: CEFEPIME 2,000 MG in SODIUM CHLORIDE 100 ML IV SCH ×2 (06:25→20:35)
[2017-03-08] MEDS: ACETAMINOPHEN 325 MG TAB (TYLENOL) PO PRN ×2 (06:31→19:56)
[2017-03-08 06:52] LABS: ALBUMIN 2.6 g/dL (3.4-5.0)
[2017-03-08 07:16] LABS: MEAN CORPUSCULAR HEMOGLOBIN 26.3 PG (26.0-34.0); MEAN CORPUSCULAR VOLUME 79 FL (80-100); WHITE BLOOD COUNT 0.48 10^3uL (4.0-11.0)
[2017-03-08 07:49] LABS: BAND NEUTROPHILS % 0 % (0-6); EOSINOPHILS % 0 % (0-4); LYMPHOCYTES # 0.3 #; MICROCYTOSIS SLIGHT; MONOCYTES % 16 % (3-11); RBC MORPH SEE REFERENCE (NORMAL); SEGMENTED NEUTROPHILS % 20 % (51-67); TOTAL CELLS COUNTED 100
[2017-03-08 07:54] VITALS: BP 108/60
[2017-03-08] MEDS ORDERED: NS FLUSH 3 ML PRN IV (08:00)
[2017-03-08] MEDS ORDERED: LEVOTHYROXINE 125 MCG (LEVOTHROID) TABLET PO SCH (09:00)
[2017-03-08] MEDS ORDERED: SIMvastatin 20 MG (ZOCOR) TAB PO SCH (09:00)
[2017-03-08] MEDS: NS FLUSH 3 ML DAILY IV SCH (09:00)
[2017-03-08] MEDS: ENOXAPARIN 40 MG/0.4 ML (LOVENOX) SYR SC SCH (09:42)
[2017-03-08] MEDS: PANTOPRAZOLE 40 MG (PROTONIX) TAB PO SCH (09:42)
[2017-03-08] MEDS: ASPIRIN 81 MG CHEW (LOW-DOSE) PO SCH (09:42)
--- NOTE | 2017-03-08 11:28 | Progress Note (E) ---
Progress Note SUBJECTIVE No issues reported overnight. Afebrile. Remains on room air. BP much improved with IVF. Lactate normalized. No culture results yet. WBC count starting to improve but remains profoundly neutropenic. On exam, she reports feeling better. Discussed findings, plan of care. OBJECTIVE Vital Signs Date Time Temp Pulse Resp B/P Pulse Ox O2 Delivery O2 Flow Rate FiO2 03/08/17 07:54 98.9 74 20 108/60 95 Room air I & O 03/07/17 03/08/17 Cumulative From/Thru 19:00 07:00 03/07/17 16:34 - 03/08/17 06:12 Intake Total 2248 ml 2248 ml Output Total 2986 ml 2986 ml Balance -738 ml -738 ml GEN: Awake, alert, oriented, NAD at present. Sitting up at edge of bed. HEENT: EOMI, clear sclerae, somewhat dry oral mucosa. CV: RRR S1 S2 normal with no murmur LUNGS: CTA B with no R/R/W. ABD: Soft, NT/ND with normal bowel sounds. EXTR: Trace ankle edema. Normal peripheral pulses. INTEG: No rash. Warm, dry, well-perfused. NEURO: No focal motor neuro deficit. Mild psychomotor slowing. Weight: 83.8 kg Lab-Past 14 Days, 35 Results 03/07/17 16:32: Urine Amorphous Sediment 1+H, Urine Bacteria 2+H, Urine Bilirubin 3+H, Urine Blood Trace-lysedH, Urine Clarity Clear, Urine Collection Type Clean catch, Urine Color [place], Urine Glucose (UA) TraceH, Urine Ketones TraceH, Urine Leukocyte Esterase Negative, Urine Microscopic RBC None seen, Urine Mucus 3+H, Urine Nitrite PositiveH, Urine Protein 2+H, Urine Specific [place] 1.020, Urine Squamous Epithelial Cells 5-10, Urine Urobilinogen >=8.0H, Urine WBC 10-20H, Urine pH 6.0, Volume Urine Centrifuged <10ml unspun 03/07/17 16:45: Absolute Band Neutrophils 0.0, Alanine Aminotransferase (ALT/SGPT) 191H, Albumin 3.1#L, Albumin/Globulin Ratio 1.192, Alkaline Phosphatase 97, Anion Gap 17.4H, Anisocytosis , Aspartate Amino Transf (AST/SGOT) 90H, BUN/Creatinine Ratio 25H, Band Neutrophils % 0, Basophils # (Auto) , Basophils # (Manual) 0.0, Basophils % (Manual) 0, Basophils (%) (Auto) , Blood Morphology Comment See reference, Blood Urea Nitrogen 22#H, C-Reactive Protein 20.60H, Calcium Level 8.1L, Calcium/Ionized Calcium Ratio 4.0, Calculated Osmolality 267L, Carbon Dioxide Level 28, Chloride Level 93L, Creatinine 0.88, Differential Total Cells Counted 100, Eosinophils # 0.0, Eosinophils # (Auto) , Eosinophils % (Manual) 0 , Eosinophils (%) (Auto) , Estimat Glomerular Filtration Rate 76.9, Estimated GFR (Non- 63.5, Glucose Level 151H, Hematocrit 31.80L, Hemoglobin 10.7L, Lactic Acid Level 2.7H, Lymphocytes # 0.1, Lymphocytes # (Auto ) , Lymphocytes % (Manual) 48H, Lymphocytes (%) (Auto) , Mean Corpuscular Hemoglobin 26.2, Mean Corpuscular Hemoglobin Concent 33.6, Mean Corpuscular Volume 78L, Mean Platelet Volume 11.6H, Microcytosis Slight, Monocytes # 0.0, Monocytes # (Auto) , Monocytes % (Manual) 8, Monocytes (%) (Auto) , Neutrophils # 0.1, Neutrophils # (Auto) , Neutrophils (%) (Auto) , Platelet Count 138L, Potassium Level 4.1, Red Blood Count 4.09, Red Cell Distribution Width 13.7, Segmented Neutrophils % 44L, Sodium Level 135, Total Bilirubin 2.3#H, Total Protein 5.7L, White Blood Count 0.17*L 03/08/17 06:00: Absolute Band Neutrophils 0.0, Albumin 2.6L, Anion Gap 11.0, Band Neutrophils % 0, Basophils # (Auto) , Basophils # (Manual) 0.0, Basophils % (Manual) 0, Basophils (%) (Auto) , Blood Morphology Comment See reference, Blood Urea Nitrogen 15, Calcium Level 7.6L, Carbon Dioxide Level 29, Chloride Level 102, Creatinine 0.86, Differential Total Cells Counted 100, Eosinophils # 0.0, Eosinophils # (Auto) , Eosinophils % (Manual) 0, Eosinophils (%) (Auto) , Estimat Glomerular Filtration Rate 78.9, Estimated GFR (Non- 65.2, Glucose Level 122H, Hematocrit 26.90L, Hemoglobin 9.0L, Lactic Acid Level 1.3, Lymphocytes # 0.3, Lymphocytes # (Auto) , Lymphocytes % (Manual) 64H, Lymphocytes (%) (Auto) , Mean Corpuscular Hemoglobin 26.3, Mean Corpuscular Hemoglobin Concent 33.5, Mean Corpuscular Volume 79L, Mean Platelet Volume 11.3H , Microcytosis Slight, Monocytes # 0.0, Monocytes # (Auto) , Monocytes % (Manual ) 16H, Monocytes (%) (Auto) , Neutrophils # 0.1, Neutrophils # (Auto) , Neutrophils (%) (Auto) , Platelet Count 98L, Potassium Level 4.1, Red Blood Count 3.42L, Red Cell Distribution Width 13.8, Segmented Neutrophils % 20L, Sodium Level 139, White Blood Count 0.48*L, Metamyelocytes % 0, Phosphorus Level 3.3 MICRO 03/07 Blood culture PENDING 03/07 Urine culture PENDING IMAGING 03/07/17 CHEST PA/LAT (2 VIEW)* Clinical indication: Patient with weakness. Exam : Chest x-ray PA and lateral views. Comparisons: CT scan of the chest with IV contrast dated 01/19/2017. Findings: Port-A-Cath seen overlying the left chest with tip in the distal superior vena cava region. Lungs/pleura: There is a roughly 9 mm nodular area in the right lung base which correlates to the nodule seen on comparison chest CT scan. The other described nodules in the lungs are not well-delineated on this exam and better seen on the chest CT scan. Mild atelectasis in the lingular region is again seen. There is no gross interval lung infiltrate. There is no pneumothorax. There is no pleural effusion. Mediastinum: Unremarkable. Pulmonary vasculature: Unremarkable. Heart: Unremarkable. Bones/extrathoracic soft tissue: There are small degenerative spurs involving the thoracic spine. Surgical clips are seen overlying the right upper quadrant which could be related to cholecystectomy changes. Impression: 1: There is no interval lung infiltrate seen. 2: Nodule in the right lung base is seen which is better seen on the comparison chest CT scan. 3 : Mild lingular atelectasis versus scarring. REFERENCE 03/02/17 CT HEAD W WO PROCEDURE: CT head with and without contrast. TECHNIQUE: Multiple contiguous axial images were obtained through the brain before and after the administration of intravenous contrast. INDICATION: History of lymphoma. FINDINGS: The ventricles and cortical gyral pattern are normal. There is no evidence of intracranial hemorrhage. No extra axial fluid collection. There is no mass effect. Basal cisterns are clear. CP angles appear normal. Following IV contrast injection. There is normal enhancement of the intracranial arteries. The sagittal and transverse sinus also show normal enhancement. There are no abnormal enhancing masses. The meninges do not enhance in an abnormal fashion. Bone windows show mastoid air cells to be clear. Paranasal sinuses are clear were visualized. No destructive bony changes. IMPRESSION: Normal CT scan of the head with and without contrast. No findings are seen to suggest metastatic disease. 01/19/17 CT CHEST W PROCEDURE: CT chest with contrast only. TECHNIQUE: Multiple contiguous axial images were obtained through the chest after administration of intravenous contrast. INDICATION: Pulmonary nodules, history of sarcoidosis. COMPARISON: Comparison limited to relevant overlapped images from a CT thoracic spine dated 04/26/2013 and with overlapped images of an abdominopelvic CT performed 04/26/2013. FINDINGS: There is no peritracheal or mediastinal lymphadenopathy. There is no hilar adenopathy. No bronchiectasis. No suspicious interstitial lung disease, no evidence for acute pneumonia. There is a right lower lobe nodule measuring 8.6 mm unchanged from the abdominal CT of 2013. Micronodule 3-4 mm in the left lower lobe also unchanged from 2013 chronic and benign. A right lower lobe nodule posteromedially near the posterior sulcus today measures 1 cm unchanged as well. No new dominant or suspicious lung mass. No thoracic adenopathy. No effusion or pneumothorax. Visualized upper abdomen unremarkable. IMPRESSION: Bilateral pulmonary nodules unchanged from a study performed in April 2013. This degree of stability is adequate to confirm benignity. No lymphadenopathy, no pneumonia, and no evidence for substantial chronic interstitial disease. ASSESSMENT Kaitlynn Hawkins is a 71 year old female admitted from ED 03/07 where she presented with SIRS/sepsis attributed to UTI. She had profound hypotension on admit consistent with severe sepsis but BP rapidly improved with IVF given in ED. She had profound neutropenia on admit with WBC 0.17 and ANC 45. She has underlying NHL. PLAN * SIRS, Severe Sepsis: Attribute to UTI but in the setting of severe neutropenia. Cultures pending. Broad spectrum antibiotics. * UTI: Urine culture pending. Broad spectrum coverage with cefepime and vanco because of neutropenia. * Neutropenic Fever: Fever subjective. ANC on admit 75. Already got G-CSF. Monitor counts. Cefepime, vanco. * NHL, Stage IV: Review records from [facility]. * Hypotension: Improved. BP low on initial presentation, 79/50. Responsive to IVF. 1 L NS bolus given in ED. 2 additional liters ordered on admit. * PRETTY: Ibuprofen, norco. * Nausea/Vomiting: Minimal on admit but had symptoms prior to admit. Ondansetron , promethazine. * F/E/N: IVF as above. Diabetic diet. Port. I&O, daily weight. * Prophylaxis: Enoxaparin * Code Status: DNR. Discussed on admit. * Dispo: Inpatient, expecting 3 day stay minimum. CHRONIC ISSUES * Diabetes Mellitus Type II: Sliding scale. Hold metformin. * Hypothyroidism: Levothyroxine * HTN: Hold metoprolol. * HLD: Simvastatin * GERD: Pantoprazole (sub for omeprazole. MONI DOVER MD Mar 08, 2017 11:14
[2017-03-08] MEDS ORDERED: SODIUM CHLORIDE 100 ML ONE (11:39)
[2017-03-08] MEDS: VANCOMYCIN COMPOUNDED BY PHARMACY IV SCH (11:43)
[2017-03-08] MEDS: NS FLUSH 10 ML PRN IV ×2 (11:43→20:36)
[2017-03-08] MEDS: VANCOMYCIN 1250 MG in SODIUM CHLORIDE 250 ML IV SCH (11:43)
[2017-03-08 11:57] VITALS: BP 117/61
[2017-03-08] MEDS ORDERED: SODIUM CHLORIDE 100 ML IV PRN (12:05)
--- NOTE | 2017-03-08 13:04 | Physical Therapy Evaluation(E) ---
Plan of Care STG: Plan-Treatment Functional: Independent with HEP STG Time Frame: 1 Treatment Goals Discussed/Agreed: Yes Discharge Recommendations: Home Independently Aware of Dx and Prognosis: Yes Aware of Risk & Benefit: Yes To be Seen: One time only Initial Evaluation Service Date/Time 03/08/17, 13:04 Primary Diagnosis: Treatment Diagnosis: Resuscitation Status: Do Not Resuscitate Precaution/Isolation: Standard Precautions Fall Level: Low Risk 25-50 Initial Assessment Reason for Rehab: Increase Mobility, Increase Strength, Increase Balance Pain Level: 0 Pain Location/Comment Pt reports no pain at this date. Prior Level of Function PLOF is IND and living at home. Rehabilitation Potential: Excellent Rehab Potential Based on PLOF, social support, good mobility as determined during exam. Assistive Device: None Distance Walked in Feet 615' Assist: Min Assist/Contact Guard Pt is ambulating with no AD, reciprocal pattern, upright posture, even step length, and normal ALBER. ROM/Strength Hip Mobility: Right Hip ROM: WFL Right Hip Strength: 4 Left Hip ROM: WFL Left Hip Strength: 4+ Knee Flexion Mobility: Right Knee Flexion: WFL Right Knee Flexion Strength: 4+ Left Knee Flexion: WFL Left Knee Flexion Strength: 4+ Knee Extension Mobility: Right Knee Extension: WFL Right Knee Extension Strength: 4+ Left Knee Extension: WFL Left Knee Extension Strength: 4+ Ankle Mobility: Right Ankle ROM: WFL Right Ankle Strength: 4+ Left Ankle ROM: WFL Left Ankle Strength: 4+ Assessment/Goals Initial Transfer Assessment Rolling: Complete [place] Sit-Supine: Complete [place] Sitting Edge of Bed: Complete [place] Supine-Sit: Modified [place] Sit-Stand from Bed: Contact Guard Assist Stand-Sit: Contact Guard Assist Pivot Transfers: Contact Guard Assist Ambulation: Contact Guard Assist Distance Walked in Feet 615'. 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 Treatments Treatments Comment Pt supine in bed upon arrival. Pleasant and agreeable to session today. Pt completes supine>sit at EOB IND, then sit>stand CGA to begin ambulation. Pt ambulates in hallway 615' with min VC given for upright posture and even step length. Upon completion of the session pt completes stand>sit at EOB with CGA. Sit>supine IND. Pt left with all needs met and call light within reach. Coding Time In: 1042 Time Out: 1057 Total Minutes: 15 Charges: 23005 Eval< 20 min Patient is functioning safely in her room and ambulated in hallway without difficulty or assistance required from therapy staff. She is not in need of therapy services at this time. Rehab G Codes Current Functional Status: [id number] Current Modifier: CI 1% but <20% Projected Functional Goal: [id number] Goal Modifier: CI 1% but <20% FERNY BROOKS PT Mar 08, 2017 13:04
[2017-03-08] MEDS ORDERED: LORA0.5T PO (13:19)
[2017-03-08] MEDS ORDERED: HYDR-3708 PO (13:19)
[2017-03-08] MEDS ORDERED: ONDA-51 PO (13:19)
[2017-03-08 16:00] VITALS: BP 110/56
[2017-03-08 20:56] VITALS: BP 155/75
[2017-03-08] MEDS ORDERED: SIMvastatin 10 MG (ZOCOR) TAB PO ONE (21:00)
[2017-03-08] MEDS ORDERED: VANCOMYCIN 1,250 MG in SODIUM CHLORIDE 250 ML IV SCH (21:00)
[2017-03-09 00:36] VITALS: BP 147/68
[2017-03-09 03:40] VITALS: BP 136/67
[2017-03-09] MEDS: VANCOMYCIN COMPOUNDED BY PHARMACY IV SCH ×2 (04:00→22:00)
[2017-03-09] MEDS: VANCOMYCIN 1250 MG in SODIUM CHLORIDE 250 ML IV SCH ×2 (04:43→22:40)
[2017-03-09] MEDS: LEVOTHYROXINE 125 MCG (LEVOTHROID) TABLET PO SCH (06:11)
[2017-03-09] MEDS: INSULIN LISPRO 1 UNIT/0.01 ML (HUMALOG) DOSE SC SCH ×4 (06:26→22:40)
[2017-03-09] MEDS: NS FLUSH 10 ML PRN IV ×3 (06:50→09:49)
[2017-03-09 07:30] VITALS: BP 135/80
[2017-03-09] MEDS: CEFEPIME 2,000 MG in SODIUM CHLORIDE 100 ML IV SCH ×2 (09:00→21:36)
[2017-03-09] MEDS: ENOXAPARIN 40 MG/0.4 ML (LOVENOX) SYR SC SCH (09:00)
[2017-03-09] MEDS: ASPIRIN 81 MG CHEW (LOW-DOSE) PO SCH (09:00)
[2017-03-09] MEDS: PANTOPRAZOLE 40 MG (PROTONIX) TAB PO SCH (09:00)
[2017-03-09] MEDS: NS FLUSH 3 ML DAILY IV SCH (09:00)
[2017-03-09 12:21] VITALS: BP 147/66
[2017-03-09 16:15] VITALS: BP 124/55
--- NOTE | 2017-03-09 18:47 | Progress Note (E) ---
Progress Note SUBJECTIVE Clinically much improved. Urine shows now growth. Blood culture negative to date. Afebrile. On room air. Ambulated around unit without need of assistance. Updated her on findings, plan of care. OBJECTIVE Vital Signs Date Time Temp Pulse Resp B/P Pulse Ox O2 Delivery O2 Flow Rate FiO2 03/09/17 16:15 97.3 73 16 124/55 96 Room air I & O 03/08/17 03/09/17 Cumulative From/Thru 19:00 07:00 03/07/17 16:34 - 03/09/17 06:30 Intake Total 1677 ml 1235 ml 5160 ml Output Total 500 ml 2375 ml 5861 ml Balance 1177 ml -1140 ml -701 ml GEN: Awake, alert, oriented, NAD at present. Sitting up at edge of bed. HEENT: EOMI, clear sclerae, somewhat dry oral mucosa. CV: RRR S1 S2 normal with no murmur LUNGS: CTA B with no R/R/W. ABD: Soft, NT/ND with normal bowel sounds. EXTR: Trace ankle edema. Normal peripheral pulses. INTEG: No rash. Warm, dry, well-perfused. NEURO: No focal motor neuro deficit. Mild psychomotor slowing. Lab-Past 14 Days, 35 Results 03/07/17 16:32: Urine Amorphous Sediment 1+H, Urine Bacteria 2+H, Urine Bilirubin 3+H, Urine Blood Trace-lysedH, Urine Clarity Clear, Urine Collection Type Clean catch, Urine Color [place], Urine Glucose (UA) TraceH, Urine Ketones TraceH, Urine Leukocyte Esterase Negative, Urine Microscopic RBC None seen, Urine Mucus 3+H, Urine Nitrite PositiveH, Urine Protein 2+H, Urine Specific Benge 1.020, Urine Squamous Epithelial Cells 5-10, Urine Urobilinogen >=8.0H, Urine WBC 10-20H, Urine pH 6.0, Volume Urine Centrifuged <10ml unspun 03/07/17 16:45: Absolute Band Neutrophils 0.0, Alanine Aminotransferase (ALT/SGPT) 191H, Albumin 3.1#L, Albumin/Globulin Ratio 1.192, Alkaline Phosphatase 97, Anion Gap 17.4H, Anisocytosis , Aspartate Amino Transf (AST/SGOT) 90H, BUN/Creatinine Ratio 25H, Band Neutrophils % 0, Basophils # (Auto) , Basophils # (Manual) 0.0, Basophils % (Manual) 0, Basophils (%) (Auto) , Blood Morphology Comment See reference, Blood Urea Nitrogen 22#H, C-Reactive Protein 20.60H, Calcium Level 8.1L, Calcium/Ionized Calcium Ratio 4.0, Calculated Osmolality 267L, Carbon Dioxide Level 28, Chloride Level 93L, Creatinine 0.88, Differential Total Cells Counted 100, Eosinophils # 0.0, Eosinophils # (Auto) , Eosinophils % (Manual) 0 , Eosinophils (%) (Auto) , Estimat Glomerular Filtration Rate 76.9, Estimated GFR (Non- 63.5, Glucose Level 151H, Hematocrit 31.80L, Hemoglobin 10.7L, Lactic Acid Level 2.7H, Lymphocytes # 0.1, Lymphocytes # (Auto ) , Lymphocytes % (Manual) 48H, Lymphocytes (%) (Auto) , Mean Corpuscular Hemoglobin 26.2, Mean Corpuscular Hemoglobin Concent 33.6, Mean Corpuscular Volume 78L, Mean Platelet Volume 11.6H, Microcytosis Slight, Monocytes # 0.0, Monocytes # (Auto) , Monocytes % (Manual) 8, Monocytes (%) (Auto) , Neutrophils # 0.1, Neutrophils # (Auto) , Neutrophils (%) (Auto) , Platelet Count 138L, Potassium Level 4.1, Red Blood Count 4.09, Red Cell Distribution Width 13.7, Segmented Neutrophils % 44L, Sodium Level 135, Total Bilirubin 2.3#H, Total Protein 5.7L, White Blood Count 0.17*L 03/08/17 06:00: Absolute Band Neutrophils 0.0, Albumin 2.6L, Anion Gap 11.0, Band Neutrophils % 0, Basophils # (Auto) , Basophils # (Manual) 0.0, Basophils % (Manual) 0, Basophils (%) (Auto) , Blood Morphology Comment See reference, Blood Urea Nitrogen 15, Calcium Level 7.6L, Carbon Dioxide Level 29, Chloride Level 102, Creatinine 0.86, Differential Total Cells Counted 100, Eosinophils # 0.0, Eosinophils # (Auto) , Eosinophils % (Manual) 0, Eosinophils (%) (Auto) , Estimat Glomerular Filtration Rate 78.9, Estimated GFR (Non- 65.2, Glucose Level 122H, Hematocrit 26.90L, Hemoglobin 9.0L, Lactic Acid Level 1.3, Lymphocytes # 0.3, Lymphocytes # (Auto) , Lymphocytes % (Manual) 64H, Lymphocytes (%) (Auto) , Mean Corpuscular Hemoglobin 26.3, Mean Corpuscular Hemoglobin Concent 33.5, Mean Corpuscular Volume 79L, Mean Platelet Volume 11.3H , Microcytosis Slight, Monocytes # 0.0, Monocytes # (Auto) , Monocytes % (Manual ) 16H, Monocytes (%) (Auto) , Neutrophils # 0.1, Neutrophils # (Auto) , Neutrophils (%) (Auto) , Platelet Count 98L, Potassium Level 4.1, Red Blood Count 3.42L, Red Cell Distribution Width 13.8, Segmented Neutrophils % 20L, Sodium Level 139, White Blood Count 0.48*L, Metamyelocytes % 0, Phosphorus Level 3.3 Lab-Past 14 Days, 35 Results 03/07/17 16:32: Urine Amorphous Sediment 1+H, Urine Bacteria 2+H, Urine Bilirubin 3+H, Urine Blood Trace-lysedH, Urine Clarity Clear, Urine Collection Type Clean catch, Urine Color [place], Urine Glucose (UA) TraceH, Urine Ketones TraceH, Urine Leukocyte Esterase Negative, Urine Microscopic RBC None seen, Urine Mucus 3+H, Urine Nitrite PositiveH, Urine Protein 2+H, Urine Specific Benge 1.020, Urine Squamous Epithelial Cells 5-10, Urine Urobilinogen >=8.0H, Urine WBC 10-20H, Urine pH 6.0, Volume Urine Centrifuged <10ml unspun 03/07/17 16:45: Absolute Band Neutrophils 0.0, Alanine Aminotransferase (ALT/SGPT) 191H, Albumin 3.1#L, Albumin/Globulin Ratio 1.192, Alkaline Phosphatase 97, Anion Gap 17.4H, Anisocytosis , Aspartate Amino Transf (AST/SGOT) 90H, BUN/Creatinine Ratio 25H, Band Neutrophils % 0, Basophils # (Auto) , Basophils # (Manual) 0.0, Basophils % (Manual) 0, Basophils (%) (Auto) , Blood Morphology Comment See reference, Blood Urea Nitrogen 22#H, C-Reactive Protein 20.60H, Calcium Level 8.1L, Calcium/Ionized Calcium Ratio 4.0, Calculated Osmolality 267L, Carbon Dioxide Level 28, Chloride Level 93L, Creatinine 0.88, Differential Total Cells Counted 100, Eosinophils # 0.0, Eosinophils # (Auto) , Eosinophils % (Manual) 0 , Eosinophils (%) (Auto) , Estimat Glomerular Filtration Rate 76.9, Estimated GFR (Non- 63.5, Glucose Level 151H, Hematocrit 31.80L, Hemoglobin 10.7L, Lactic Acid Level 2.7H, Lymphocytes # 0.1, Lymphocytes # (Auto ) , Lymphocytes % (Manual) 48H, Lymphocytes (%) (Auto) , Mean Corpuscular Hemoglobin 26.2, Mean Corpuscular Hemoglobin Concent 33.6, Mean Corpuscular Volume 78L, Mean Platelet Volume 11.6H, Microcytosis Slight, Monocytes # 0.0, Monocytes # (Auto) , Monocytes % (Manual) 8, Monocytes (%) (Auto) , Neutrophils # 0.1, Neutrophils # (Auto) , Neutrophils (%) (Auto) , Platelet Count 138L, Potassium Level 4.1, Red Blood Count 4.09, Red Cell Distribution Width 13.7, Segmented Neutrophils % 44L, Sodium Level 135, Total Bilirubin 2.3#H, Total Protein 5.7L, White Blood Count 0.17*L 03/08/17 06:00: Absolute Band Neutrophils 0.0, Albumin 2.6L, Anion Gap 11.0, Band Neutrophils % 0, Basophils # (Auto) , Basophils # (Manual) 0.0, Basophils % (Manual) 0, Basophils (%) (Auto) , Blood Morphology Comment See reference, Blood Urea Nitrogen 15, Calcium Level 7.6L, Carbon Dioxide Level 29, Chloride Level 102, Creatinine 0.86, Differential Total Cells Counted 100, Eosinophils # 0.0, Eosinophils # (Auto) , Eosinophils % (Manual) 0, Eosinophils (%) (Auto) , Estimat Glomerular Filtration Rate 78.9, Estimated GFR (Non- 65.2, Glucose Level 122H, Hematocrit 26.90L, Hemoglobin 9.0L, Lactic Acid Level 1.3, Lymphocytes # 0.3, Lymphocytes # (Auto) , Lymphocytes % (Manual) 64H, Lymphocytes (%) (Auto) , Mean Corpuscular Hemoglobin 26.3, Mean Corpuscular Hemoglobin Concent 33.5, Mean Corpuscular Volume 79L, Mean Platelet Volume 11.3H , Microcytosis Slight, Monocytes # 0.0, Monocytes # (Auto) , Monocytes % (Manual ) 16H, Monocytes (%) (Auto) , Neutrophils # 0.1, Neutrophils # (Auto) , Neutrophils (%) (Auto) , Platelet Count 98L, Potassium Level 4.1, Red Blood Count 3.42L, Red Cell Distribution Width 13.8, Segmented Neutrophils % 20L, Sodium Level 139, White Blood Count 0.48*L, Metamyelocytes % 0, Phosphorus Level 3.3 MICRO 03/07 Blood culture Negative to date. 03/07 Urine culture Negative to date. IMAGING 03/07/17 CHEST PA/LAT (2 VIEW)* Clinical indication: Patient with weakness. Exam : Chest x-ray PA and lateral views. Comparisons: CT scan of the chest with IV contrast dated 01/19/2017. Findings: Port-A-Cath seen overlying the left chest with tip in the distal superior vena cava region. Lungs/pleura: There is a roughly 9 mm nodular area in the right lung base which correlates to the nodule seen on comparison chest CT scan. The other described nodules in the lungs are not well-delineated on this exam and better seen on the chest CT scan. Mild atelectasis in the lingular region is again seen. There is no gross interval lung infiltrate. There is no pneumothorax. There is no pleural effusion. Mediastinum: Unremarkable. Pulmonary vasculature: Unremarkable. Heart: Unremarkable. Bones/extrathoracic soft tissue: There are small degenerative spurs involving the thoracic spine. Surgical clips are seen overlying the right upper quadrant which could be related to cholecystectomy changes. Impression: 1: There is no interval lung infiltrate seen. 2: Nodule in the right lung base is seen which is better seen on the comparison chest CT scan. 3 : Mild lingular atelectasis versus scarring. REFERENCE 03/02/17 CT HEAD W WO PROCEDURE: CT head with and without contrast. TECHNIQUE: Multiple contiguous axial images were obtained through the brain before and after the administration of intravenous contrast. INDICATION: History of lymphoma. FINDINGS: The ventricles and cortical gyral pattern are normal. There is no evidence of intracranial hemorrhage. No extra axial fluid collection. There is no mass effect. Basal cisterns are clear. CP angles appear normal. Following IV contrast injection. There is normal enhancement of the intracranial arteries. The sagittal and transverse sinus also show normal enhancement. There are no abnormal enhancing masses. The meninges do not enhance in an abnormal fashion. Bone windows show mastoid air cells to be clear. Paranasal sinuses are clear were visualized. No destructive bony changes. IMPRESSION: Normal CT scan of the head with and without contrast. No findings are seen to suggest metastatic disease. 01/19/17 CT CHEST W PROCEDURE: CT chest with contrast only. TECHNIQUE: Multiple contiguous axial images were obtained through the chest after administration of intravenous contrast. INDICATION: Pulmonary nodules, history of sarcoidosis. COMPARISON: Comparison limited to relevant overlapped images from a CT thoracic spine dated 04/26/2013 and with overlapped images of an abdominopelvic CT performed 04/26/2013. FINDINGS: There is no peritracheal or mediastinal lymphadenopathy. There is no hilar adenopathy. No bronchiectasis. No suspicious interstitial lung disease, no evidence for acute pneumonia. There is a right lower lobe nodule measuring 8.6 mm unchanged from the abdominal CT of 2012. Micronodule 3-4 mm in the left lower lobe also unchanged from 2013 chronic and benign. A right lower lobe nodule posteromedially near the posterior sulcus today measures 1 cm unchanged as well. No new dominant or suspicious lung mass. No thoracic adenopathy. No effusion or pneumothorax. Visualized upper abdomen unremarkable. IMPRESSION: Bilateral pulmonary nodules unchanged from a study performed in April 2013. This degree of stability is adequate to confirm benignity. No lymphadenopathy, no pneumonia, and no evidence for substantial chronic interstitial disease. ASSESSMENT Kaitlynn Hawkins is a 71 year old female admitted from ED 03/07 where she presented with SIRS/sepsis attributed to UTI. She had profound hypotension on admit consistent with severe sepsis but BP rapidly improved with IVF given in ED. She had profound neutropenia on admit with WBC 0.17 and ANC 45. She has underlying NHL. PLAN * SIRS, Severe Sepsis: Improved. Attribute to UTI but in the setting of severe neutropenia. Cultures as noted. Broad spectrum antibiotics. * UTI: Urine culture negative to date. Broad spectrum coverage with cefepime and vanco because of neutropenia. * Neutropenic Fever: Fever subjective. ANC on admit 75. Already got G-CSF. Monitor counts. Cefepime, vanco. * NHL, Stage IV: Review records [facility]. * Hypotension: Improved. BP low on initial presentation, 79/50. Responsive to IVF. 1 L NS bolus given in ED. 2 additional liters ordered on admit. * PRETTY: Ibuprofen, norco. * Nausea/Vomiting: Minimal on admit but had symptoms prior to admit. Ondansetron , promethazine. * F/E/N: IVF as above. Diabetic diet. Port. I&O, daily weight. * Prophylaxis: Enoxaparin * Code Status: DNR. Discussed on admit. * Dispo: Inpatient, expecting 3 day stay minimum. She is anxious for discharge. Is indeed rapidly improving. Consider discharge if ANC improving and cultures remain negative. CHRONIC ISSUES * Diabetes Mellitus Type II: Sliding scale. Hold metformin. * Hypothyroidism: Levothyroxine * HTN: Hold metoprolol. * HLD: Simvastatin * GERD: Pantoprazole (sub for omeprazole. MONI DOVER MD Mar 09, 2017 18:41
[2017-03-09] MEDS: ACETAMINOPHEN 325 MG TAB (TYLENOL) PO PRN (19:50)
[2017-03-09 20:00] VITALS: BP 121/63
[2017-03-09] MEDS ORDERED: SIMvastatin 20 MG (ZOCOR) TAB PO SCH (21:00)
[2017-03-10] VITALS: BP 128/61
[2017-03-10 04:00] VITALS: BP 124/56
[2017-03-10 06:18] LABS: MEAN PLATELET VOLUME 12.1 FL (6.0-9.5); PLATELET COUNT 110 10^3uL (150-450); WHITE BLOOD COUNT 1.66 10^3uL (4.0-11.0)
[2017-03-10 06:29] LABS: ALBUMIN 2.9 g/dL (3.4-5.0); ANION GAP 12.6 MEQ/L (3-15)
[2017-03-10] MEDS: LEVOTHYROXINE 125 MCG (LEVOTHROID) TABLET PO SCH (06:32)
[2017-03-10 07:00] LABS: MEAN CORPUSCULAR HEMOGLOBIN 25.9 PG (26.0-34.0); MEAN CORPUSCULAR VOLUME 79 FL (80-100)
[2017-03-10 07:03] LABS: BAND NEUTROPHILS % 10 % (0-6); EOSINOPHILS % 0 % (0-4); LYMPHOCYTES # 0.5 #; MONOCYTES # 0.1 #; MONOCYTES % 9 % (3-11); RBC MORPH NORMAL (NORMAL); SEGMENTED NEUTROPHILS % 47 % (51-67); TOTAL CELLS COUNTED 100
[2017-03-10] MEDS: INSULIN LISPRO 1 UNIT/0.01 ML (HUMALOG) DOSE SC SCH ×2 (07:27→13:01)
[2017-03-10] MEDS: ASPIRIN 81 MG CHEW (LOW-DOSE) PO SCH (08:39)
[2017-03-10] MEDS: PANTOPRAZOLE 40 MG (PROTONIX) TAB PO SCH (08:39)
[2017-03-10] MEDS: ENOXAPARIN 40 MG/0.4 ML (LOVENOX) SYR SC SCH (08:40)
[2017-03-10] MEDS: CEFEPIME 2,000 MG in SODIUM CHLORIDE 100 ML IV SCH (08:40)
[2017-03-10] MEDS: ACETAMINOPHEN 325 MG TAB (TYLENOL) PO PRN (08:40)
[2017-03-10] MEDS: NS FLUSH 10 ML PRN IV ×3 (08:45→14:55)
[2017-03-10] MEDS: NS FLUSH 3 ML DAILY IV SCH (08:45)
[2017-03-10 09:10] VITALS: BP 147/78
[2017-03-10 12:22] VITALS: BP 135/69
--- NOTE | 2017-03-10 13:58 | Discharge Instructions (E) ---
Discharge Instructions Instructions * You were evaluated and treated for fever in the setting of low white blood cell count because of chemotherapy. You received antibiotics and you had a workup for infection including blood culture, urine culture, and chest x-ray. These tests were all reassuring. Your white blood cell count is improving and it is OK to discharge with oral antibiotic. * Your white blood cell is expected to continue to recover. Have your blood checked in lab on Tuesday 03/13 as previously scheduled. * Be sure to seek medical attention if you notice fever, chills, respiratory complaints, diarrhea, or any other concerns. Activity Instructions As tolerated. Doctor's Appointment Follow-up with Dr. Bryant on Wednesday 03/14 as previously scheduled. Be sure to have your lab work checked on Monday. Discharge Diet: Carbohydrate controlled MONI DOVER MD Mar 10, 2017 13:58
[2017-03-10] MEDS ORDERED: LEVO500T80 PO (14:10)
--- NOTE | 2017-03-12 21:14 | Discharge Summary (E) ---
Discharge Summary (E) Admit Date/Time Mar 07, 2017 at 18:52 Discharge Date/Time Mar 10, 2017 at 15:05 Admitting Provider Moni Velasquez MD Primary Care Provider Chan Rizo Attending Provider Moni Velasquez MD Consulting Provider History and Present Illness Kaitlynn Hawkins is a 71 year old female admitted from ED 03/07 where she presented with SIRS/sepsis attributed to UTI. She had profound hypotension on admit consistent with severe sepsis but BP rapidly improved with IVF given in ED. She had profound neutropenia on admit with WBC 0.17 and ANC 45. She has underlying NHL and had received chemo but also G-CSF prior to admit. She was placed on broad spectrum antibiotics. Cultures ultimately were negative. WBC improved somewhat, with ANC going from 75 on admit to 946 on discharge. Case was discussed with oncologist and discharge plan is as outlined below. Hospital Course and Treatment * SIRS, Severe Sepsis: Improved. Attribute to UTI but in the setting of severe neutropenia. Cultures as noted. Broad spectrum antibiotics given on admit. * UTI: Urine culture negative to date. Broad spectrum coverage with cefepime and vanco because of neutropenia. At discharge, switched to levofloxacin. * Neutropenic Fever: Fever subjective on admit, resolved on discharge. ANC on admit 75, 946 on discharge. Already got G-CSF. Monitored counts. Cefepime, vanco on admit. Levofloxacin on discharge. * NHL, Stage IV: Reviewed records from [facility]. Updated their office on admit and discharge. * Hypotension: Improved. BP low on initial presentation, 79/50. Responsive to IVF. 1 L NS bolus given in ED. 2 additional liters ordered on admit. * PRETTY: Ibuprofen, norco. * Nausea/Vomiting: Minimal on admit but had symptoms prior to admit. Ondansetron , promethazine. * F/E/N: IVF as above. Diabetic diet. Port. I&O, daily weight. * Prophylaxis: Enoxaparin * Code Status: DNR. Discussed on admit. * Dispo: Inpatient. Discharged home with plan for labs on 03/13, oncology follow -up 03/14. CHRONIC ISSUES * Diabetes Mellitus Type II: Sliding scale. Held metformin. * Hypothyroidism: Levothyroxine * HTN: Hold metoprolol. * HLD: Simvastatin * GERD: Pantoprazole (sub for omeprazole.) Discharge Physicial Exam General Vital Signs Date Time Temp Pulse Resp B/P Pulse Ox O2 Delivery O2 Flow Rate FiO2 03/10/17 12:22 97.0 84 18 135/69 95 Room air GEN: Awake, alert, oriented, NAD. HEENT: EOMI, clear sclerae, somewhat dry oral mucosa. CV: RRR S1 S2 normal with no murmur LUNGS: CTA B with no R/R/W. ABD: Soft, NT/ND with normal bowel sounds. EXTR: Trace ankle edema. Normal peripheral pulses. INTEG: No rash. Warm, dry, well-perfused. NEURO: No focal motor neuro deficit. Ambulated without assistance. Laboratory/Radiology Data Pertinent labs discussed above. Full details: Laboratory Results-14 Days 03/07/17 16:32: Urine Amorphous Sediment 1+H, Urine Bacteria 2+H, Urine Bilirubin 3+H, Urine Blood Trace-lysedH, Urine Clarity Clear, Urine Collection Type Clean catch, Urine Color [place], Urine Glucose (UA) TraceH, Urine Ketones TraceH, Urine Leukocyte Esterase Negative, Urine Microscopic RBC None seen, Urine Mucus 3+H, Urine Nitrite PositiveH, Urine Protein 2+H, Urine Specific [place] 1.020, Urine Squamous Epithelial Cells 5-10, Urine Urobilinogen >=8.0H, Urine WBC 10-20H, Urine pH 6.0, Volume Urine Centrifuged <10ml unspun 03/07/17 16:45: Absolute Band Neutrophils 0.0, Alanine Aminotransferase (ALT/SGPT) 191H, Albumin 3.1#L, Albumin/Globulin Ratio 1.192, Alkaline Phosphatase 97, Anion Gap 17.4H, Anisocytosis , Aspartate Amino Transf (AST/SGOT) 90H, BUN/Creatinine Ratio 25H, Band Neutrophils % 0, Basophils # (Auto) , Basophils # (Manual) 0.0, Basophils % (Manual) 0, Basophils (%) (Auto) , Blood Morphology Comment See reference, Blood Urea Nitrogen 22#H, C-Reactive Protein 20.60H, Calcium Level 8.1L, Calcium/Ionized Calcium Ratio 4.0, Calculated Osmolality 267L, Carbon Dioxide Level 28, Chloride Level 93L, Creatinine 0.88, Differential Total Cells Counted 100, Eosinophils # 0.0, Eosinophils # (Auto) , Eosinophils % (Manual) 0 , Eosinophils (%) (Auto) , Estimat Glomerular Filtration Rate 76.9, Estimated GFR (Non- 63.5, Glucose Level 151H, Hematocrit 31.80L, Hemoglobin 10.7L, Lactic Acid Level 2.7H, Lymphocytes # 0.1, Lymphocytes # (Auto ) , Lymphocytes % (Manual) 48H, Lymphocytes (%) (Auto) , Mean Corpuscular Hemoglobin 26.2, Mean Corpuscular Hemoglobin Concent 33.6, Mean Corpuscular Volume 78L, Mean Platelet Volume 11.6H, Microcytosis Slight, Monocytes # 0.0, Monocytes # (Auto) , Monocytes % (Manual) 8, Monocytes (%) (Auto) , Neutrophils # 0.1, Neutrophils # (Auto) , Neutrophils (%) (Auto) , Platelet Count 138L, Potassium Level 4.1, Red Blood Count 4.09, Red Cell Distribution Width 13.7, Segmented Neutrophils % 44L, Sodium Level 135, Total Bilirubin 2.3#H, Total Protein 5.7L, White Blood Count 0.17*L 03/08/17 06:00: Absolute Band Neutrophils 0.0, Albumin 2.6L, Anion Gap 11.0, Band Neutrophils % 0, Basophils # (Auto) , Basophils # (Manual) 0.0, Basophils % (Manual) 0, Basophils (%) (Auto) , Blood Morphology Comment See reference, Blood Urea Nitrogen 15, Calcium Level 7.6L, Carbon Dioxide Level 29, Chloride Level 102, Creatinine 0.86, Differential Total Cells Counted 100, Eosinophils # 0.0, Eosinophils # (Auto) , Eosinophils % (Manual) 0, Eosinophils (%) (Auto) , Estimat Glomerular Filtration Rate 78.9, Estimated GFR (Non- 65.2, Glucose Level 122H, Hematocrit 26.90L, Hemoglobin 9.0L, Lactic Acid Level 1.3, Lymphocytes # 0.3, Lymphocytes # (Auto) , Lymphocytes % (Manual) 64H, Lymphocytes (%) (Auto) , Mean Corpuscular Hemoglobin 26.3, Mean Corpuscular Hemoglobin Concent 33.5, Mean Corpuscular Volume 79L, Mean Platelet Volume 11.3H , Microcytosis Slight, Monocytes # 0.0, Monocytes # (Auto) , Monocytes % (Manual ) 16H, Monocytes (%) (Auto) , Neutrophils # 0.1, Neutrophils # (Auto) , Neutrophils (%) (Auto) , Platelet Count 98L, Potassium Level 4.1, Red Blood Count 3.42L, Red Cell Distribution Width 13.8, Segmented Neutrophils % 20L, Sodium Level 139, White Blood Count 0.48*L, Metamyelocytes % 0, Phosphorus Level 3.3 03/10/17 05:45: Absolute Band Neutrophils 0.1, Albumin 2.9L, Anion Gap 12.6, Band Neutrophils % 10H, Basophils # (Auto) , Basophils # (Manual) 0.0, Basophils % (Manual) 0, Basophils (%) (Auto) , Blood Morphology Comment Normal, Blood Urea Nitrogen 8, Calcium Level 8.3L, Carbon Dioxide Level 28, Chloride Level 101, Creatinine 0.69 , Differential Total Cells Counted 100, Eosinophils # 0.0, Eosinophils # (Auto) , Eosinophils % (Manual) 0, Eosinophils (%) (Auto) , Estimat Glomerular Filtration Rate 101.8, Estimated GFR (Non- 84.1, Glucose Level 118H, Hematocrit 26.70L, Hemoglobin 8.8L, Lymphocytes # 0.5, Lymphocytes # (Auto ) , Lymphocytes % (Manual) 34, Lymphocytes (%) (Auto) , Mean Corpuscular Hemoglobin 25.9L, Mean Corpuscular Hemoglobin Concent 33.0, Mean Corpuscular Volume 79L, Mean Platelet Volume 12.1H, Monocytes # 0.1, Monocytes # (Auto) , Monocytes % (Manual) 9, Monocytes (%) (Auto) , Neutrophils # 0.8, Neutrophils # (Auto) , Neutrophils (%) (Auto) , Platelet Count 110L, Potassium Level 3.7, Red Blood Count 3.40L, Red Cell Distribution Width 13.7, Segmented Neutrophils % 47L , Sodium Level 138, White Blood Count 1.66L, Phosphorus Level 4.1# MICRO 03/07 Blood culture Negative to date. 03/07 Urine culture Negative to date. IMAGING 03/07/17 CHEST PA/LAT (2 VIEW)* Clinical indication: Patient with weakness. Exam : Chest x-ray PA and lateral views. Comparisons: CT scan of the chest with IV contrast dated 01/19/2017. Findings: Port-A-Cath seen overlying the left chest with tip in the distal superior vena cava region. Lungs/pleura: There is a roughly 9 mm nodular area in the right lung base which correlates to the nodule seen on comparison chest CT scan. The other described nodules in the lungs are not well-delineated on this exam and better seen on the chest CT scan. Mild atelectasis in the lingular region is again seen. There is no gross interval lung infiltrate. There is no pneumothorax. There is no pleural effusion. Mediastinum: Unremarkable. Pulmonary vasculature: Unremarkable. Heart: Unremarkable. Bones/extrathoracic soft tissue: There are small degenerative spurs involving the thoracic spine. Surgical clips are seen overlying the right upper quadrant which could be related to cholecystectomy changes. Impression: 1: There is no interval lung infiltrate seen. 2: Nodule in the right lung base is seen which is better seen on the comparison chest CT scan. 3 : Mild lingular atelectasis versus scarring. REFERENCE 03/02/17 CT HEAD W WO PROCEDURE: CT head with and without contrast. TECHNIQUE: Multiple contiguous axial images were obtained through the brain before and after the administration of intravenous contrast. INDICATION: History of lymphoma. FINDINGS: The ventricles and cortical gyral pattern are normal. There is no evidence of intracranial hemorrhage. No extra axial fluid collection. There is no mass effect. Basal cisterns are clear. CP angles appear normal. Following IV contrast injection. There is normal enhancement of the intracranial arteries. The sagittal and transverse sinus also show normal enhancement. There are no abnormal enhancing masses. The meninges do not enhance in an abnormal fashion. Bone windows show mastoid air cells to be clear. Paranasal sinuses are clear were visualized. No destructive bony changes. IMPRESSION: Normal CT scan of the head with and without contrast. No findings are seen to suggest metastatic disease. 01/19/17 CT CHEST W PROCEDURE: CT chest with contrast only. TECHNIQUE: Multiple contiguous axial images were obtained through the chest after administration of intravenous contrast. INDICATION: Pulmonary nodules, history of sarcoidosis. COMPARISON: Comparison limited to relevant overlapped images from a CT thoracic spine dated 04/26/2013 and with overlapped images of an abdominopelvic CT performed 04/26/2013. FINDINGS: There is no peritracheal or mediastinal lymphadenopathy. There is no hilar adenopathy. No bronchiectasis. No suspicious interstitial lung disease, no evidence for acute pneumonia. There is a right lower lobe nodule measuring 8.6 mm unchanged from the abdominal CT of 2012. Micronodule 3-4 mm in the left lower lobe also unchanged from 2013 chronic and benign. A right lower lobe nodule posteromedially near the posterior sulcus today measures 1 cm unchanged as well. No new dominant or suspicious lung mass. No thoracic adenopathy. No effusion or pneumothorax. Visualized upper abdomen unremarkable. IMPRESSION: Bilateral pulmonary nodules unchanged from a study performed in April 2013. This degree of stability is adequate to confirm benignity. No lymphadenopathy, no pneumonia, and no evidence for substantial chronic interstitial disease. Discharge Disposition Discharged home. Instructions * You were evaluated and treated for fever in the setting of low white blood cell count because of chemotherapy. You received antibiotics and you had a workup for infection including blood culture, urine culture, and chest x-ray. These tests were all reassuring. Your white blood cell count is improving and it is OK to discharge with oral antibiotic. * Your white blood cell is expected to continue to recover. Have your blood checked in lab on Tuesday 03/13 as previously scheduled. * Be sure to seek medical attention if you notice fever, chills, respiratory complaints, diarrhea, or any other concerns. Activity Instructions As tolerated. Appointments Follow-up with Dr. Bryant on Wednesday 03/14 as previously scheduled. Be sure to have your lab work checked on Monday. Discharge Diet: Carbohydrate controlled Discharge Medications New Medications: Levofloxacin (Levofloxacin) 500 Mg Tablet 500 MG PO DAILY Infection #5 Ref 0 TAB Continued Medications: Aspirin (Aspir 81) 81 Mg Tablet.dr 81 MG PO DAILY TAB Dicyclomine HCl (Dicyclomine HCl) 20 Mg Tablet 20 MG PO Q6H PRN ABDOMINAL PAIN TAB Hydrocodone Bit/Acetaminophen (Hydrocodon-Acetaminophen 10-325) 1 Each Tablet 1 TAB PO Q4H PRN PAIN #60 Levothyroxine Sodium (Levothyroxine Sodium) 125 Mcg Tablet 187.5 MCG PO DAILY #45 Lorazepam (Ativan) 0.5 Mg Tablet 0.5 MG PO Q4H PRN NAUSEA #30 Metformin HCl (Glucophage) 500 Mg Tablet 500 MG PO BID WITH MEALS Metoprolol Succinate (Metoprolol Succinate) 50 Mg Tab.er.24h 50 MG PO DAILY #30 Omeprazole (Omeprazole) 40 Mg Capsule. 40 MG PO DAILY Ondansetron HCl (Ondansetron HCl) 8 Mg Tablet 8 MG PO Q8H PRN NAUSEA/VOMITING #30 Simvastatin (Zocor) 20 Mg Tablet 30 MG PO HS Discharge Diagnosis See list above. Problems: Copies to: End of Report . MONI VELASQUEZ MD Mar 12, 2017 21:14
== END 2017-03-10 15:05 | disposition home or self-care (01) | DRG 872 ==
LOC: ED 16:16 → MED/SURG 18:52
PROVIDERS: ADMIT Internal Medicine; ATTEND Internal Medicine
DX: A41.9 Sepsis, unspecified organism (principal); N39.0 Urinary tract infection, site not specified; C85.90 Non-Hodgkin lymphoma, unspecified, unspecified site; Z66 Do not resuscitate; D70.1 Agranulocytosis secondary to cancer chemotherapy; R65.20 Severe sepsis without septic shock; E11.9 Type 2 diabetes mellitus without complications; E03.9 Hypothyroidism, unspecified; I10 Essential (primary) hypertension; R50.81 Fever presenting with conditions classified elsewhere; T45.1X5A Adverse effect of antineoplastic and immunosuppressive drugs, initial encounter
CPT/HCPCS: 36415; 71020; 80053; 80069; 81003; 81015; 83605; 85025; 86140; 87040; 87088; 96361; 96365; 99283; 99285

== ENCOUNTER 2017-03-21 23:39 | Emergency (ER) | payer MEDICARE, OTHER ==
[~2017-03-21] VITALS: Ht 170.2 cm; Wt 85.9 kg
[~2017-03-21 23:39] MED LIST changes: +LEVO500T80 PO; +LORA0.5T PO; +ONDA-51 PO; +ONDA4TAB11 PO
[2017-03-22] MEDS ORDERED: metFORMIN 500 MG (GLUCOPHAGE) TABLET PO ONE (00:25)
[2017-03-22 01:22] VITALS: BP 133/78
== END 2017-03-22 01:15 | disposition home or self-care (01) ==
LOC: EDUNIT# 23:39 → ED 23:41
DX: E11.65 Type 2 diabetes mellitus with hyperglycemia (principal); Z79.899 Other long term (current) drug therapy; T38.3X6A Underdosing of insulin and oral hypoglycemic [antidiabetic] drugs, initial encounter; Z91.138 Patient's unintentional underdosing of medication regimen for other reason; Y92.009 Unspecified place in unspecified non-institutional (private) residence as the place of occurrence of the external cause
CPT/HCPCS: 99283; A9270; 99282

== ENCOUNTER → 2017-04-10 | Outpatient (CLI) | payer MEDICARE, OTHER ==
[2017-04-10 10:44] LABS: MEAN CORPUSCULAR HEMOGLOBIN 27.8 PG (26.0-34.0); MEAN CORPUSCULAR HGB CONC 33.8 g/dL (31.0-37.0); MEAN CORPUSCULAR VOLUME 82 FL (80-100); PLATELET COUNT 235 10^3uL (150-450); WHITE BLOOD COUNT 4.42 10^3uL (4.0-11.0)
[2017-04-10 12:36] LABS: BAND NEUTROPHILS % 1 % (0-6); EOSINOPHILS % 1 % (0-4); LYMPHOCYTES # 0.8 #; MONOCYTES # 0.8 #; MONOCYTES % 20 % (3-11); SEGMENTED NEUTROPHILS % 60 % (51-67); TOTAL CELLS COUNTED 100
[2017-04-10 12:37] LABS: ANISOCYTOSIS MODERATE; RBC MORPH SEE REFERENCE (NORMAL)
== END ==
LOC: LAB 11:07
PROVIDERS: ATTEND Internal Medicine Hematology & Oncology
DX: C83.39 Diffuse large B-cell lymphoma, extranodal and solid organ sites (principal)
CPT/HCPCS: 36415; 85007; 85027